=== PATIENT | female | born 1960 | race Caucasian/White ===

== ENCOUNTER 2019-12-01 19:21 | Emergency (ER) | payer OTHER, SELFPAY ==
[2019-11-25 10:01] VITALS: BMI 23.1
[2019-12-01 19:22] VITALS: BP 164/86; PULSE 79; RESP 18; TEMP 36.8; O2SAT 97; BMI 23.1
[2019-12-01 19:59] VITALS: O2SAT 100
--- NOTE | 2019-12-01 20:01 | EKG12_ITS ---
Test Reason : SOB Blood Pressure : / mmHG Vent. Rate : 061 BPM Atrial Rate : 061 BPM P-R Int : 156 ms QRS Dur : 076 ms QT Int : 440 ms P-R-T Axes : 065 051 052 degrees QTc Int : 442 ms Normal sinus rhythm Septal infarct , age undetermined Abnormal ECG Confirmed by JERRY BEARDEN, ESTEVAN ([id number]), international editorial producer KAITLYNN MCCURDY ([id number]) on 12/04/2019 10:09:57 AM Referred By: FABIO Confirmed By:ESTEVAN EDWARDS MD
--- NOTE | 2019-12-01 20:02 | ED.DCSUM_ITS ---
History of Present Illness Chief Complaint: Shortness of Breath Informant: Patient Onset: Weeks Context: Gradual Onset Timing: Waxes and wanes Current Severity: Mild Maximum Severity: Moderate Narrative: Patient presents with shortness of breath that is been ongoing for the past 4 or 5 weeks. She states she has a burning sensation in the midportion of her chest consistent with reflux. She started taking Harriet as well as Prilosec. She has not noted improvement in her symptoms in spite of this treatment. She states when the burning comes up into the upper chest sometimes it will radiate to her left jaw. She has not noted significant chest pain. She has not noted wheezing or cough. - Past Medical History (1) Hypertension Status: Chronic (2) Stomach ulcer Status: Resolved Past Medical History - Allergies and Home Meds Allergies/Adverse Reactions: Allergies Penicillins Allergy (Verified 12/01/19 19:25) Rash Primary Care Physician: NOT,DEFINED [NON-STAFF] - Prior records reviewed: Yes Smoking Status: Never smoker Review of Systems General: Denies: Chills, Fever Eyes: Denies: Visual changes - bilaterally ENT: Denies: Bilateral ear pain Cardiovascular: Denies: Chest pain Respiratory: Reports: Dyspnea. Denies: Cough, Sputum Gastrointestinal: Reports: - - Reflux symptoms. Denies: Abdominal pain, Nausea, Vomiting, Diarrhea Genitourinary: Denies: Dysuria Musculoskeletal: Denies: Swelling, Extremity Pain Skin: Denies: Rash Neurological: Denies: Headache Hematologic: Denies: Easy bruising, Easy bleeding Physical Exam Vital Signs/Narrative: Vital Signs Temp Pulse Resp BP Pulse Ox 12/01/19 19:22 98.2 F 79 18 164/86 H 97 Inital Vital Signs reviewed: Yes General: Well nourished, Well developed Head: Normocephalic ENT: Moist mucous membranes Neck: Supple Cardiovascular: Regular rate, Regular rhythm Respiratory: No distress, CTA bilaterally Abdomen: Soft, Nontender, Nondistended Back: Nontender Extremities: Nontender Skin: Normal color, No rash Neurological: Alert, Oriented x3 Psychological: Normal affect Diagnostic/Tx/Re-eval Impressions Chest X-Ray 12/01/19 20:45 IMPRESSION: Normal x-ray examination of the chest. Electronically Signed: Lorenzo Deng MD at 20:55 EDT , Service support , 12/01/19 20:45 Chest 1 View (Portable) [RAD] Stat Laboratory Results 12/01/19 12/01/19 20:15 20:15 WBC 6.7 RBC 4.16 L Hgb 12.2 Hct 37.2 MCV 89.4 MCH 29.3 MCHC 32.8 RDW Std Deviation 41.0 RDW Coeff of Gm 12.6 Plt Count 311 MPV 9.5 Immature Gran % (Auto) 0.100 Neut % (Auto) 48.6 Lymph % (Auto) 40.6 Kimble % (Auto) 6.1 Eos % (Auto) 3.4 Baso % (Auto) 1.2 H Absolute Neuts (auto) 3.3 Absolute Lymphs (auto) 2.72 Nucleated RBC % 0 Sodium 139 Potassium 2.9 L Chloride 105 Carbon Dioxide 27.0 Anion Gap 7 BUN 18 Creatinine 0.99 Estim Creat Clear Calc 49.36 Est GFR (MDRD) Af Amer 73 Est GFR (MDRD) Non-Af 61 BUN/Creatinine Ratio 18.2 Glucose 90 Calcium 9.3 Troponin I < 0.015 - EKG Initial EKG Interpretation: Sinus Rhythm - Sinus at 61 with no acute ischemia. - Medical Decision Making Patient was given a GI cocktail. On repeat evaluation she does note some improvement. Patient's potassium is slightly low at 2.9. She is given 40 mEq p.o. will be given replacement for for next. She will also be written for Prilosec 40 mg. She is referred to Dr. Elizabeth for follow-up, next in the no doc list. ED Disposition - Plan for ED Patient: Disposition: Home or Assisted Living Diagnosis: GERD (gastroesophageal reflux disease), Hypokalemia Instructions: Gastroesophageal Reflux Disease (GERD), ED Potassium Deficiency Prescriptions: Potassium Chloride [K-Dur] 20 meq PO BID #8 tab Transmission Status: Pending to [facility] Omeprazole [Prilosec] 40 mg PO DAILY #60 cap Transmission Status: Pending to [facility] Referrals: Robert Bermudez MD [NON-STAFF] - As soon as possible
--- NOTE | 2019-12-01 20:06 | ED.RN ---
NO OLD EKGS AT THIS TIME
[2019-12-01] MEDS: Mag Hydrox/Al Hydrox/Simeth 30 ML UDC PO (20:17)
[2019-12-01 20:27] LABS: Absolute Lymphocyte Count 2.72 X10^3/uL (0.83-4.51); Absolute Neutrophil Count 3.3 X10^3/uL (2.0-7.7); Basophil# 0.08 X10^3/uL; Basophil% 1.2 % (0-1); Eosinophil# 0.23 X10^3/uL; Eosinophils% 3.4 % (0-5); Hematocrit 37.2 % (37-47); Hemoglobin 12.2 g/dL (12.0-15.0); Lymphocyte # 2.72 X10^3/ul (4.0); Lymphocyte % 40.6 % (19-41); Mean Corp Hgb Conc 32.8 g/dL (32-36); Mean Corpuscular Hgb 29.3 pg (27.0-32.0); Mean Corpuscular Volume 89.4 fL (81-99); Mean Platelet Vol. 9.5 fl (6.2-12.0); Monocyte# 0.41 X10^3/uL; Monocyte% 6.1 % (0-10); NRBC Flagged by Analyzer 0 % (0-5); Neutrophil # 3.25 X10^3/uL (2.7-7.7); Neutrophil % 48.6 % (47-70); Platelet Count 311 K/mm3 (150-450); RBC Distribution Width CV 12.6 % (11.6-14.6); Red Blood Count 4.16 M/mm3 (4.2-5.4); White Blood Count 6.7 K/mm3 (4.4-11.0)
--- NOTE | 2019-12-01 20:45 | RAD_ITS ---
STUDY: X-RAY CHEST REASON FOR EXAM: Female, 59 years old. shortness of breath TECHNIQUE: AP portable COMPARISON: None. FINDINGS: The lungs are clear and expanded.. There is no demonstrated pleural abnormality. Normal size heart. Normal mediastinum and piter. Normal visualized pulmonary arteries. Normal visualized aortic arch and descending thoracic aorta. Normal visualized thoracic spine. Normal visualized ribs, clavicles, and shoulders. There is no demonstrated abnormality of the visualized soft tissue structures of the upper abdomen. RAD/Chest 1 View (Portable) IMPRESSION: Normal x-ray examination of the chest. Electronically Signed: Lorenzo Deng MD at 20:55 EDT , Service support ,
[2019-12-01 20:51] LABS: Anion Gap 7 (5-15); BUN 18 mg/dL (7-18); BUN/Creat Ratio 18.2 RATIO (10-20); Calcium,Total 9.3 mg/dL (8.5-10.1); Chloride 105 mmol/L (98-107); Creatinine, Serum 0.99 mg/dL (0.55-1.02); EST Glomerular Filtration Rate 61 mL/min (>60); Est Glom Filt Rate - Afr Amer 73 mL/min (>60); Estimated Creatinine Clearance 49.36 ml/min; Glucose 90 mg/dL (74-106); Potassium 2.9 mmol/L (3.5-5.1); Sodium Level 139 mmol/L (136-145)
[2019-12-01 21:00] VITALS: BP 134/86; PULSE 68; RESP 22; O2SAT 98
[2019-12-01 21:40] VITALS: BP 144/90; PULSE 58; RESP 11; O2SAT 100
== END 2019-12-01 21:53 | disposition home or self-care (01) ==
PROVIDERS: Emergency Provider Emergency Medicine
DX: K21.9 Gastro-esophageal reflux disease without esophagitis (principal); E87.6 Hypokalemia; I10 Essential (primary) hypertension; Z79.899 Other long term (current) drug therapy
CPT/HCPCS: 71045; 80048; 84484; 85025; 93005; 99284; A4216

== ENCOUNTER → 2019-12-18 | Outpatient (CLI) | payer OTHER, SELFPAY ==
[2019-12-15 09:28] VITALS: BMI 21.7
[2019-12-18 15:31] LABS: ALB/GLOB Ratio 1.5 RATIO (0.9-2.4); AST(SGOT) 25 U/L (15-37); Alanine Aminotransfer ALT/SGPT 26 U/L (13-56); Albumin, Serum 4.1 g/dL (3.2-5.0); Alkaline Phosphatase 54 U/L (45-117); Anion Gap 10 (5-15); BUN 8 mg/dL (7-18); BUN/Creat Ratio 9.8 RATIO (10-20); Calcium,Total 8.8 mg/dL (8.5-10.1); Chloride 91 mmol/L (98-107); Cholesterol 219 mg/dL (200); Creatinine, Serum 0.82 mg/dL (0.55-1.02); EST Glomerular Filtration Rate 75 mL/min (>60); Est Glom Filt Rate - Afr Amer 91 mL/min (>60); Globulin 2.8 g/dL (2.2-4.2); Glucose 125 mg/dL (74-106); High Density Lipoprotein 73 mg/dL; Potassium 3.4 mmol/L (3.5-5.1); Protein, Total 6.9 g/dL (6.4-8.2); Sodium Level 128 mmol/L (136-145); Triglycerides 102 mg/dL; Very Low Density Lipoprotein 20 mg/dL (5-40)
== END | disposition home or self-care (01) ==
PROVIDERS: PCP Internal Medicine; Referring Provider Internal Medicine; Visit Provider Internal Medicine
DX: I10 Essential (primary) hypertension (principal); K21.9 Gastro-esophageal reflux disease without esophagitis
CPT/HCPCS: 80053; 80061

== ENCOUNTER → 2019-12-28 12:42 | Outpatient (CLI) | payer OTHER, SELFPAY ==
[2019-12-25 09:45] VITALS: BMI 21.0
--- NOTE | 2019-12-28 13:48 | SP.MBSS_ITS ---
Primary/Secondary Diagnosis: dysphagia, unspecified (R13.12) Referring Physician: Dr. Zhen Walsh Medical History: Patient is a 59/F with past medical history of HTN, stomach ulcer, and GERD. Patient has reported globus sensation in throat making swallowing difficult and uncomfortable. In addition patient has reported shortness of breath with eating. Reason for Referral: difficulty swallowing; globus sensation Current Diet: Regular Textures/Thin Liquids Dentition: Natural Teeth Mental Status: WFL Respiratory Status: oxygenating on room air Previous Modified Barium Swallow: N/A Study Findings: This patient was seen for a Modified Barium Swallow on 12/28/2019. This study was recorded in the lateral view and images were sent to PACs for storage. The following consistencies were presented to this patient for analysis of oropharyngeal swallow function: thin liquid, nectar thick liquid, pudding, and a cookie. Oral Phase Labial seal: no labial escape Tongue control during bolus hold: cohesive bolus between tongue to palatal seal Bolus preparation/mastication: slow prolonged chewing/mashing with complete recollection Bolus transport/lingual motion: brisk tongue motion Oral residue: trace residue lining oral structures Pharyngeal Phase Initiation of pharyngeal swallow: bolus head in valleculae Soft palate elevation: no bolus between soft palate and pharyngeal wall Laryngeal elevation: complete superior movement of thyroid cartilage with complete approximation of arytenoids cartilage to epiglottic petiole Anterior hyoid excursion: partial anterior movement Epiglottic movement: complete inversion Laryngeal vestibule closure at height of swallow: incomplete; narrow column of air/contrast in laryngeal vestibule Pharyngeal stripping wave: present complete Pharyngoesophageal segment opening: partial distension and partial duration; partial obstruction of flow Tongue base retraction: trace column of contrast between tongue base and posterior pharyngeal wall Pharyngeal residue: trace residue within or on pharyngeal structures Esophageal Phase Could not view* Penetration-Aspiration Scale 1 = does not enter airway 2 = enters airway/above vocal folds/ejected 3 = enters airway/above vocal folds/not ejected 4 = enters airway/contacts vocal folds/ejected 5 = enters airway/contacts vocal folds/not ejected 6 = enters airway/below vocal folds/ejected 7 = enters airway/below vocal folds/not ejected despite effort 8 = enters airway/below vocal folds/no effort Penetration-Aspiration Scale Score: 1) Thin liquids via teaspoon: 1 2) Thin Liquids via teaspoon: 1 3) Thin liquids via single small sip from cup : 1 4) Thin liquids via single large sip from cup: 1 5) Thin liquids via sequential sips from cup: 2 6) Reedy thick liquids: 1 7) puddin 8) cookie: 1 9) Thin liquids via sequential sips from cup 2 Diagnosis: mild oropharyngeal dysphagia (R13.12) Impression: The patient demonstrated slight penetration of thin liquids when consumed via straw and with larger sip. On both occurances penetration of liquid was above the vocal cords and ejected. No aspiration found on this assessment. Patient demosntrated adequate mastication of solid Juany Doone cookie with only trace residue on oral and pharyngeal structures. Would recommend follow up with GI as highly suspect acid reflex may be at least partially the cause of globus sensation patient describes. Recommendations Diet: Regular Textures/Thin Liquids Compensatory Strategies Recommended: small bites/sips, upright 90 degrees during meals/drinks and remain upright 30-60 minutes after, alternate bites/sips Need for Skilled Speech Therapy Services: No further skilled ST services warranted at this time. ADDITIONAL COMMENTS/RECOMMENDATIONS: Patient instructed on evaluation results. Patientt able to repeat recommendations back to BUILD ENGINEER demonstrating adequate knowledge and understanding with high likelihood of compliance. Image Count [id number] Vani Zeng MA, CCC-BUILD ENGINEER [place] [id number] [place], [place] [address] [email or web address]
== END ==
PROVIDERS: PCP Internal Medicine; Referring Provider Internal Medicine Critical Care Medicine; Visit Provider Internal Medicine Critical Care Medicine
DX: R13.10 Dysphagia, unspecified (principal); R06.00 Dyspnea, unspecified
CPT/HCPCS: 74230; 92611

== ENCOUNTER → 2020-01-02 06:53 | Outpatient (CLI) | payer OTHER, SELFPAY ==
[2019-12-25 09:45] VITALS: BMI 21.0
--- NOTE | 2020-01-02 13:50 | PFTCOMP ---
COMPLETE PULMONARY FUNCTION TEST INTERPRETATION Brief HPI: Patient is a 59 year old female, currently under the care of myself, who presents to [facility] for complete pulmonary function tests secondary to diagnosis of dyspnea. Respiratory therapist reports good effort and reproducible results. Interpretation: Forced expiration spirometry shows a mild large airways obstructive ventilatory defect with an FEV1 of 103% predicted. There is no significant bronchodilator response by strict ATS criteria. Spirograms are of good quality and plateau slowly, indicating slowly emptying areas of the lungs. The respiratory flow volume loop shows decreased expiratory flow rates at all lung volumes consistent with airway obstruction. Lung volumes by body plethysmography show an elevated total lung capacity at 6.04 L, 129% predicted. All other lung volumes are creased symmetrically. Diffusion capacity by carbon monoxide is normal at 101% predicted. The airway resistance is normal. No previous pulmonary function tests were available for review. Impression: Irreversible mild large airways obstructive ventilatory defect resulting in hyperinflation with preserved diffusion capacity.
== END ==
PROVIDERS: PCP Internal Medicine; Referring Provider Internal Medicine Critical Care Medicine; Visit Provider Internal Medicine Critical Care Medicine
DX: R06.00 Dyspnea, unspecified (principal)
CPT/HCPCS: 94060; 94726; 94729

== ENCOUNTER → 2020-01-03 | Outpatient (CLI) | payer OTHER, SELFPAY ==
[2020-01-03 08:23] VITALS: BMI 21.0
--- NOTE | 2020-01-03 09:45 | CT_ITS ---
STUDY: CT CHEST WITHOUT CONTRAST REASON FOR EXAM: Female, 59 years old. CHEST DISCOMFORT, RESTRICTIVE LUNG DISEASE RADIATION DOSAGE (If Supplied By Facility): CTDIvol = ( 6.21 ) mGy, DLP = ( 212.39 ) mGycm TECHNIQUE: Transaxial imaging was performed without the administration of intravenous contrast material. Multiplanar coronal and sagittal images were reformatted. Individualized dose optimization techniques were used for this CT. COMPARISON: Comparison is made with prior chest radiograph dated December 01, 2019. FINDINGS: Minimal degree of bilateral apical scarring. There is no demonstrated pleural abnormality. There are calcifications of the coronary arteries. Normal mediastinum. Normal hilar regions. Normal unenhanced pulmonary arteries. There is atherosclerotic calcification of the aortic arch and descending thoracic aorta. There are mild degenerative changes of the thoracic spine. There is no demonstrated abnormality of the visualized upper abdomen. CT/Chest without Contrast IMPRESSION: No acute abnormality is seen. Electronically Signed: Cuong Castle, at 10:17 EDT , Service support ,
== END | disposition home or self-care (01) ==
LOC: CT 09:45
PROVIDERS: PCP Internal Medicine; Visit Provider Nurse Practitioner Acute Care
DX: J98.4 Other disorders of lung (principal)
CPT/HCPCS: 71250

== ENCOUNTER → 2020-01-17 | Outpatient (CLI) | payer OTHER, SELFPAY ==
[2020-01-10 09:41] VITALS: BMI 21.0
[2020-01-17 12:55] LABS: Anion Gap 5 (5-15); BUN 9 mg/dL (7-18); BUN/Creat Ratio 12.2 RATIO (10-20); Calcium,Total 8.7 mg/dL (8.5-10.1); Chloride 104 mmol/L (98-107); Creatinine, Serum 0.74 mg/dL (0.55-1.02); EST Glomerular Filtration Rate 85 mL/min (>60); Est Glom Filt Rate - Afr Amer 103 mL/min (>60); Glucose 75 mg/dL (74-106); Potassium 4.2 mmol/L (3.5-5.1); Sodium Level 137 mmol/L (136-145)
== END | disposition home or self-care (01) ==
LOC: BIMLAB 09:39
PROVIDERS: PCP Internal Medicine; Referring Provider Nurse Practitioner Family; Visit Provider Nurse Practitioner Family
DX: E87.6 Hypokalemia (principal)
CPT/HCPCS: 36415; 80048

== ENCOUNTER → 2020-01-25 | Outpatient (CLI) | payer OTHER, SELFPAY ==
[2020-01-10 09:41] VITALS: BMI 21.0
--- NOTE | 2020-01-25 12:56 | BD_ITS ---
STUDY: DUAL ENERGY X-RAY ABSORPTIOMETRY / DXA REASON FOR EXAM: Female, 60 years old. 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 COMPARISON: None. FINDINGS: Lumbar Spine (L1-L4): g/cm2 (1.401) / T-score (1.8) / Z-score (3.2) Findings are suggestive of normal bone density with a low fracture risk. Left Femur Total: g/cm2 (1.008) / T-score (0.0) / Z-score (1.0) Left Femoral Neck: g/cm2 (1.005) / T-score (-0.2) / Z-score (1.1) Right Femur Total: g/cm2 (1.090) / T-score (0.7) / Z-score (1.7) Right Femoral Neck: g/cm2 (1.077) / T-score (0.3) / Z-score (1.6) BD/Dexa Bone Density Study IMPRESSION: The patient is considered normal as outlined below according to World Ari[employer] Organization (WHO) criteria with a low fracture risk. Reference Information: The T-score is the number of standard deviations above or below the standard which is normal for young adults at their peak bone mineral density. The World Health Organization (WHO) interprets the T-scores as follows: Above -1 Normal bone density Between -1 and -2.5 Osteopenia Equal to / or below -2.5 Osteoporosis As a practical clinical guideline, osteopenia may be graded as follows: Mild -1 through -1.5 Moderate -1.6 through -2.0 Severe -2.1 through -2.4 The Z-score is the number of standard deviations above or below age-matched controls. A Z-score of less than -1.5 would be considered abnormal. References: 1. NIH Osteoporosis and Related Bone Diseases http://www.osteo.org 2. International Society for Clinical Densitometry http://www.iscd.org 3. National Osteoporosis Foundation http://www.nof.org Electronically Signed: Cuong Castle, at 14:53 EDT , Service support ,
== END | disposition home or self-care (01) ==
LOC: OPBD 12:53
PROVIDERS: PCP Internal Medicine; Referring Provider Nurse Practitioner Family; Visit Provider Nurse Practitioner Family
DX: Z78.0 Asymptomatic menopausal state (principal)
CPT/HCPCS: 77080

== ENCOUNTER 2020-02-13 08:31 | Day surgery (SDC) | payer OTHER, SELFPAY ==
[2020-01-31 13:26] VITALS: BMI 21.0
[2020-02-13] VITALS (7 sets, daily range): BP systolic 102–118; BP diastolic 58–79; PULSE 64–67; RESP 16; TEMP 36.7–37.1; O2SAT 97–100; BMI 19.9
--- NOTE | 2020-02-13 08:56 | PCM.HP.BLA ---
Problem List (1) Dysphagia Status: Chronic Qualifiers: Dysphagia type: esophageal phase Qualified Code(s): R13.10 - Dysphagia, unspecified (2) GERD (gastroesophageal reflux disease) Status: Chronic Qualifiers: History and Physical Date of Admission: 02/13/20 Intake Vital Signs 01/31/20 BMI 21.0 01/31/20 Height 5 ft 3 in 01/31/20 Weight: 117 lb 8 oz 01/31/20 BMI 20.8 01/31/20 BP 122/72 H 01/31/20 Blood Pressure Location Rt brachial 01/31/20 Position Sitting 01/31/20 Respiration 16 01/31/20 Pulse 62 01/31/20 Temp 97.4 F L 01/31/20 Temp Source Temporal 01/31/20 Pulse Oximetry (%) 99 Intake Visit Reasons: 3WK F/U MEDS DYSPHAGIA Chief Complaint: Follow-up GI symptoms Case Work Aide Required: No Is patient in pain?: No Allergies Penicillins Allergy (Verified 01/31/20 13:26) Rash Medications famotidine 20 mg tablet 20 mg PO BID #60 tab 12/15/19 [Rx Confirmed 01/31/20] albuterol sulfate 90 mcg/actuation aerosol inhaler 2 puff INHALATION Q6H PRN #8.5 g 12/19/19 [Rx Confirmed 01/31/20] losartan 50 mg tablet 75 mg PO DAILY tab 12/19/19 [History Confirmed 01/31/20] BMX 5 ml PO Q6H #120 ml 12/29/19 [Rx Confirmed 01/31/20] omeprazole 20 mg tablet,delayed release 20 mg PO DAILY #60 tab 01/03/20 [Rx Confirmed 01/31/20] sucralfate 1 gram tablet 1 g PO QACHS #120 tab 01/03/20 [Rx Confirmed 01/31/20] Is last menstrual period known: No Post menopausal: Yes Patient : No PFSH Medical History GERD (gastroesophageal reflux disease) (Chronic) IBS (irritable bowel syndrome) (Chronic) Carpal tunnel syndrome (Acute) Allergies (Chronic) Diarrhea (Acute) Severe headache (Acute) Stomach ulcer (Acute) Hemorrhoids (Chronic) HTN (hypertension) (Chronic) Surgical History History of carpal tunnel release of both wrists (Acute) History of surgery on right wrist (Acute) Family History Father Heart disease Asthma Bowel disease Sister Asthma Diabetes Hypertension Social History (Updated 01/31/20 @ 13:[address] Serge Duarte MD) Smoking Status: Never smoker alcohol intake: never substance use type: does not use what type of physical activity do you participate in: walking frequency: daily HPI HPI HPI: MARCELA MCCLURE, is a 60 F who presents to the office today for HPI HPI HPI: MARCELA MCCLURE, is a 60 F who presents to the office today for follow-up after dysphasia and being started on a PPI and Carafate. Patient reports that her burning is gone in her chest but she is still having shortness of breath when she eats and she is also having pressure in the middle of her chest. She is having no nausea or vomiting. ROS General General: Yes weight change; no appetite, fatigue, colon cancer, breast cancer or weakness HEENT HEENT: No difficulty swallowing, eye injury, eye surgery, swollen glands or hoarseness Endo Endocrine: No thyroid disease, diabetes mellitus, thyroid cancer, Hair loss, heat intolerance or cold intolerance Cardio Cardiovascular: Yes high blood pressure; no murmur, pacemaker, heart disease, atrial fibrillation, heart attack, heart stent, palpitations, shortness of breat with exertion or chest pain Psych Psychiatric: Yes anxiety; no depression or hearing voices Resp Respiratory: Yes shortness of breath, No sleep apnea, No cough, No COPD, No asthma, No emphysema, No wheezing Gastro Gastrointestinal: No abdominal pain, No nausea or vomiting, No diarrhea, No constipation, No blood in stool, Yes acid reflux, Yes hemorrhoids, No ulcers, No gallbladder problem, No black,tarry stools Hollis Hematologic: No blood thinners, No blood disorders, No bleeding, No anemia, No blood clots Neuro Neurologic: No weakness Exam Const General: cooperative Orientation: alert, oriented x3 Resp Effort & Inspection: normal respiratory effort Auscultation: clear to auscultation bilaterally Cardio Rate: regular rate Rhythm: regular rhythm Heart Sounds: no murmurs GI Inspection: non-distended Palpation: soft, nontender Assessment & Plan Problems 1. Gastroesophageal reflux disease, esophagitis presence not specified K21.9 2. Oropharyngeal dysphagia R13.12 Plan The patient is still having some dysphasia and shortness of breath and pain in the middle of her chest with swallowing. She does state that her reflux has responded to the PPI. I have offered her an EGD with biopsies of the esophagus to rule out Eosinophilic esophagitis and to check for H. pylori. I explained endoscopy in detail to the patient. I explained the risks including but not limited to stroke or heart attack with anesthesia, perforation of the GI tract, bleeding, infection. I explained that any of these could necessitate further emergency surgery. The patient understands and all questions were answered sufficiently. The patient wishes to proceed with procedure. We discussed the current risks associated with COVID-19. While it is understood that there is a community spread of COVID-19, the risk of rosio COVID-19 while at [facility] ([facility]) is very low; however, the risk cannot be completely mitigated because of the community spread of the disease. We discussed in detail the risk of exposure to and/or potential harm posed by the COVID-19 virus with having a surgery/procedure at this time versus the risk of delaying the surgery/procedure. It is not possible to know either the risk of delaying the surgery or procedure or chance of getting an infection with perfect accuracy, but a joint decision was made to proceed at this time with the scheduled surgery/procedure as indicated on the consent form. Patient was notified that we will need to comply with any screening or testing [facility] wishes to perform or that surgery may be delayed for any positive results. Serge Duarte MD Pager: [facility] [address] [place] [address], [address] [place] [address] Office: Orders Orders: EGD Today K21.9, R13.10 Coding Level of Care Code Off vis,est,level 3 Diagnoses Gastroesophageal reflux disease, esophagitis presence not specified K21.9 ??Esophagitis presence: esophagitis presence not specified Oropharyngeal dysphagia R13.12 ??Dysphagia type: oropharyngeal phase 01/31/20 1334 <Electronically signed by Serge Duarte MD> Date Serge Duarte MD I have re-examined the patient. There are no clinical changes since date of exam.
[2020-02-13] MEDS: Lactated Ringers 1,000 ML 100 ML IV (08:59)
--- NOTE | 2020-02-13 09:30 | EGD_PTH ---
PATIENT: MARCELA MCCLURE LOC: EN U#:[id number] AGE/SX: 60/F ROOM: RE02/13/[address]: Dr. Serge Duarte MD : 1960 BED: DIS: 02/13/2020 SPEC #: [id number] RECD: 02/13/20 13:48 STATUS: ANITA LORNA #: [id number] ERIC: 02/13/20 09:[address]: Serge Duarte DEPT: SURGICAL PATHOLOGY RECD BY: Александр Perez ENTERED: 02/14/20 09:18 SP TYPE: EGD BIOPSY OT DR: Dr. Josette Zeng MD Tissues: A - Gastric mucous membrane B - Esophageal mucous membrane Procedures: Surgery Specimen Level IV HEADER OPERATION: EGD [place] PRE-OP DIAGNOSIS: Chronic dysphasia, GERD TISSUE SUBMITTED: A - Antrum biopsy for histo and H. pylori, B - Mid esophagus biopsy for eosinophils MICROSCOPIC DIAGNOSIS A. Antrum biopsy: Mild gastritis. See microscopic description and comment. B. Mid esophagus, biopsy: Fragments of squamous epithelium, no pathologic diagnosis. See comment. SJ:rg 02/15/20 COMMENT A. The results of immunohistochemistry for Helicobacter pylori will be reported separately ([id number]). B. Increased number of eosinophils consistent with eosinophilic esophagitis are not seen. MICROSCOPIC DESCRIPTION Slides are reviewed. A. The specimen shows fragments of gastric mucosa with chronic inflammatory cell infiltrates in the lamina propria consisting of lymphocytes and plasma cells, consistent with mild chronic gastritis. GROSS DESCRIPTION A - Received in fixative is one container labeled with the patient's name and designated antrum biopsy. The specimen consists of two irregular fragments of light rodriguez soft tissue that in aggregate measure 0.6 x 0.2 x 0.1 cm. The specimen is totally submitted in one cassette. B - Received in fixative is one container labeled with the patient's name and designated mid esophagus biopsy. The specimen consists of multiple irregular fragments of light rodriguez soft tissue that in aggregate measure 1.5 x 0.5 x 0.1 cm. The specimen is totally submitted in one cassette. / JULIO CÉSAR:alexander 02/14/20 TC:3 CPT: 34099
--- NOTE | 2020-02-13 09:30 | IMM_PTH ---
PATIENT: MARCELA MCCLURE LOC: EN U#:[id number] AGE/SX: 60/F ROOM: RE02/13/[address]: Dr. Serge Duarte MD : 1960 BED: DIS: 02/13/2020 SPEC #: [id number] RECD: 02/14/20 12:09 STATUS: ANITA LORNA #: [id number] ERIC: 02/13/20 09:[address]: Serge Duarte DEPT: IMMUNOHISTOCHEMISTRY RECD BY: Blaire Tamez ENTERED: 02/14/20 12:09 SP TYPE: IMMUNO OTHR DR: Dr. Josette Zeng MD Tissues: A - Stomach, NOS Procedures: H Pylori (initial) PHYSICIAN & INSTITUTION [place] [address] SPECIMEN INFORMATION: Tissue Source: A - Antrum biopsy Clinical Info: Chronic dysphasia, GERD Specimen Number: [id number] CPT code: 94177 METHODOLOGY: Deparaffinized sections of prefer/formalin-fixed tissue or PAP/DQ stained slides are incubated with monoclonal/polyclonal antibodies/oligonucleotide probes. Localization is made via biotin free immunoperoxidase method. Appropriate controls are performed and reacted as expected. Results on target cell population are indicated in the following table: RESULTS: ANTIBODY / CLONE RESULT Block A H Pylori (polyclonal) negative These tests were developed and their performance characteristics determined by [facility]. They may not have been cleared or approved by the U.S. Food and Drug Administration. The FDA has determined that such clearance or approval is not necessary. INTERPRETATION: A. Antrum biopsy: Negative for Helicobacter pylori organisms. SJ:alexander 02/15/20
--- NOTE | 2020-02-13 10:00 | OP.EGD_ITS ---
Patient Name: Princess Monte Procedure Date: 02/13/2020 9:40 AM Date of : 1960 Age: 60 Procedure: Upper GI endoscopy Indications: Dysphagia, Suspected gastro-esophageal reflux disease Providers: Serge Duarte MD Referring MD: Josette Zeng MD Medicines: Monitored Anesthesia Care Patient Profile: This is a 60 year old female. Refer to note in patient chart for documentation of history and physical. Complications: No immediate complications. Estimated blood loss: Minimal. Procedure: Pre-Anesthesia Assessment: - Prior to the procedure, a History and Physical was performed, and patient medications and allergies were reviewed. The patient's tolerance of previous anesthesia was also reviewed. The risks and benefits of the procedure and the sedation options and risks were discussed with the patient. All questions were answered, and informed consent was obtained. Prior Anticoagulants: The patient has taken no previous anticoagulant or antiplatelet agents. After reviewing the risks and benefits, the patient was deemed in satisfactory condition to undergo the procedure. After obtaining informed consent, the endoscope was passed under direct vision. Throughout the procedure, the patient's blood pressure, pulse, and oxygen saturations were monitored continuously. The Endoscope was introduced through the mouth, and advanced to the second part of duodenum. The upper GI endoscopy was accomplished without difficulty. The patient tolerated the procedure well. Scope In: 9:48:50 AM Scope Out: 9:53:40 AM Total Procedure Duration Time 0 hours 4 minutes 50 seconds Findings: The esophagus was normal. The stomach was normal. The examined duodenum was normal. Biopsies were taken with a cold forceps in the gastric antrum for Helicobacter pylori testing. Biopsies were taken with a cold forceps in the mid esophagus for histology. Impression: - Normal esophagus. - Normal stomach. - Normal examined duodenum. - Biopsies were taken with a cold forceps for Helicobacter pylori testing. - Biopsies were taken with a cold forceps for histology in the mid esophagus. Recommendation: - Await pathology results. - Discharge patient to home. - Resume previous diet. - Continue present medications. - Await pathology results. - Perform ambulatory esophageal manometry at appointment to be scheduled. Procedure Code(s): --- Professional --- 17839, Esophagogastroduodenoscopy, flexible, transoral; with biopsy, single or multiple Diagnosis Code(s): --- Professional --- R13.10, Dysphagia, unspecified CPT copyright 2017 [employer]. All rights reserved. The codes documented in this report are preliminary and upon hims coder review may be revised to meet current compliance requirements. Serge Duarte MD 02/13/2020 10:00:18 AM This report has been signed electronically. Number of Addenda: 0 Note Initiated On: 02/13/2020 9:40 AM
--- NOTE | 2020-02-13 10:01 | OP.CCLET_ITS ---
02/13/2020 Josette Zeng MD [address] [place] [address] [place] [address] Re : Upper GI endoscopy procedure for Princess Monte Dear Dr. Zeng This procedure was performed on Thursday, February 13, 2020. My impressions and recommendations are as follows: Impressions : - Normal esophagus. - Normal stomach. - Normal examined duodenum. - Biopsies were taken with a cold forceps for Helicobacter pylori testing. - Biopsies were taken with a cold forceps for histology in the mid esophagus. Recommendations : - Await pathology results. - Discharge patient to home. - Resume previous diet. - Continue present medications. - Await pathology results. - Perform ambulatory esophageal manometry at appointment to be scheduled. My findings are described in the full procedure note, which is enclosed. If I can be of further assistance, please feel free to contact me at Doctor phone number(s): , Work: . Sincerely, Serge Duarte MD 02/13/2020 10:00:18 AM This report has been signed electronically.
== END 2020-02-13 10:30 | disposition home or self-care (01) ==
LOC: EN 08:32 → AC 08:33
PROVIDERS: Anesthesiology; PCP Internal Medicine; Referring Provider Internal Medicine; Visit Provider Surgery
PROC: 0DJ08ZZ Inspection of Upper Intestinal Tract, Via Natural or Artificial Opening Endoscopic (ICD-10-PCS; CPT 43235; principal; 2020-02-13 09:25)
DX: K21.9 Gastro-esophageal reflux disease without esophagitis (principal); I10 Essential (primary) hypertension; Z11.59 Encounter for screening for other viral diseases; Z79.899 Other long term (current) drug therapy
CPT/HCPCS: 43239; 87635; 88305; 88342; G2023; J7120; J2405; U0003

== ENCOUNTER 2020-02-29 07:51 | Day surgery (SDC) | payer OTHER, SELFPAY ==
[2020-02-13 08:53] VITALS: BMI 19.9
[2020-02-29 08:13] VITALS: BP 129/83; PULSE 69; RESP 16; O2SAT 100
== END 2020-02-29 08:40 | disposition home or self-care (01) ==
LOC: EN 07:53
PROVIDERS: PCP Internal Medicine; Referring Provider Internal Medicine; Visit Provider Surgery
PROC: F00ZJWZ Instrumental Swallowing and Oral Function Assessment using Swallowing Equipment (ICD-10-PCS; CPT 43235; principal; 2020-02-29 07:55)
DX: R13.10 Dysphagia, unspecified (principal)
CPT/HCPCS: 91010; 87635; G2023; U0003

== ENCOUNTER → 2020-05-03 | Outpatient (CLI) | payer OTHER, SELFPAY ==
[2020-05-01 09:05] VITALS: BMI 19.9
[2020-05-03 12:40] LABS: Anion Gap 4 (5-15); BUN 15 mg/dL (7-18); BUN/Creat Ratio 20.1 RATIO (10-20); Chloride 104 mmol/L (98-107); Creatinine, Serum 0.74 mg/dL (0.55-1.02); EST Glomerular Filtration Rate 84 mL/min (>60); Est Glom Filt Rate - Afr Amer 101 mL/min (>60); Glucose 84 mg/dL (74-106); Potassium 4.2 mmol/L (3.5-5.1); Sodium Level 139 mmol/L (136-145)
== END | disposition home or self-care (01) ==
LOC: BIMLAB 10:14
PROVIDERS: PCP Internal Medicine; Referring Provider Internal Medicine; Visit Provider Internal Medicine
DX: R25.2 Cramp and spasm (principal)
CPT/HCPCS: 36415; 80048

== ENCOUNTER → 2020-09-25 10:46 | Outpatient (CLI) | payer OTHER, SELFPAY ==
[2020-05-01 09:05] VITALS: BMI 19.9
--- NOTE | 2020-09-25 10:50 | RAD_ITS ---
STUDY: X-RAY CHEST REASON FOR EXAM: Female, 60 years old. chest tightness, recent COVID TECHNIQUE: PA and lateral views of the chest. COMPARISON: Comparison is made with prior examination dated 12/01/2019. FINDINGS: Hyperinflation. Suspect early infiltrate in the posterior medial segment of the left lower lobe. There is no demonstrated pleural abnormality. Normal size heart. Normal mediastinum and piter. Normal visualized pulmonary arteries. There is atherosclerotic calcification of the aortic arch with tortuosity. Normal visualized thoracic spine. Normal visualized ribs, clavicles, and shoulders. There is no demonstrated abnormality of the visualized soft tissue structures of the upper abdomen. RAD/Chest PA and Lateral IMPRESSION: I suspect an early infiltrate in the posterior medial segment of the left lower lobe. Electronically Signed: Cuong Castle MD at 13:25 EST , Service support ,
== END ==
PROVIDERS: PCP Internal Medicine; Referring Provider Internal Medicine; Visit Provider Internal Medicine
DX: U07.1 COVID-19 (principal); R07.9 Chest pain, unspecified
CPT/HCPCS: 36415; 71046; 84484

== ENCOUNTER → 2020-09-26 12:56 | Outpatient (CLI) | payer OTHER, SELFPAY ==
[2020-05-01 09:05] VITALS: BMI 19.9
--- NOTE | 2020-09-26 12:58 | EKG12_ITS ---
Test Reason : FOLLOW UP Blood Pressure : / mmHG Vent. Rate : 070 BPM Atrial Rate : 070 BPM P-R Int : 124 ms QRS Dur : 068 ms QT Int : 376 ms P-R-T Axes : 061 067 059 degrees QTc Int : 406 ms Normal sinus rhythm Septal infarct , age undetermined Abnormal ECG Confirmed by JERRY BEARDEN, ESTEVAN ([id number]), state editor ULICES REYNA ([id number]) on 09/27/2020 8:14:36 AM Referred By: Josette Zeng Confirmed By:ESTEVAN EDWARDS MD
== END ==
PROVIDERS: PCP Internal Medicine; Referring Provider Internal Medicine; Visit Provider Internal Medicine
DX: R07.9 Chest pain, unspecified (principal)
CPT/HCPCS: 93005

== ENCOUNTER → 2021-02-17 08:08 | Outpatient (CLI) | payer OTHER, SELFPAY ==
[2020-05-01 09:05] VITALS: BMI 19.9
[2020-12-12 14:44] VITALS: BMI 23.2
--- NOTE | 2021-02-18 13:08 | PFTCOMP ---
INTRODUCTION: The patient is a 61-year-old female that presents for pulmonary function studies secondary to a diagnosis of abnormal PFT results. Respiratory therapy reports good patient effort. Bronchodilators were used during testing. INTERPRETATION: Forced expiration spirometry demonstrates no evidence of a large airways obstructive ventilatory defect. There was no significant response to aerosolized bronchodilators. Spirograms are of good quality and plateau normally. Body plethysmography was performed and revealed an elevated total lung capacity. Diffusing capacity by single breath CO was within normal limits. When compared to prior pulmonary function studies from December 2019 there has been a 19% improvement in diffusing capacity. IMPRESSION: Grossly normal PFTs with improvement in diffusing capacity as noted above.
== END ==
PROVIDERS: PCP Internal Medicine; Referring Provider Internal Medicine Critical Care Medicine; Visit Provider Internal Medicine Critical Care Medicine
DX: R94.2 Abnormal results of pulmonary function studies (principal)
CPT/HCPCS: 94060; 94726; 94729

== ENCOUNTER → 2021-03-24 09:11 | Outpatient (CLI) | payer OTHER, SELFPAY ==
[2021-03-24 08:49] VITALS: BMI 21.7
[2021-03-24 12:01] LABS: Absolute Lymphocyte Count 1.94 X10^3/uL (0.83-4.51); Absolute Neutrophil Count 3.4 X10^3/uL (2.0-7.7); Basophil# 0.08 X10^3/uL; Basophil% 1.4 % (0-1); Eosinophil# 0.12 X10^3/uL; Hematocrit 41.3 % (37-47); Hemoglobin 13.3 g/dL (12.0-15.0); Lymphocyte # 1.94 X10^3/ul (0.83-4.51); Lymphocyte % 32.8 % (19-41); Mean Corp Hgb Conc 32.2 g/dL (32-36); Mean Platelet Vol. 9.7 fl (6.2-12.0); Monocyte# 0.32 X10^3/uL; Monocyte% 5.4 % (0-10); NRBC Flagged by Analyzer 0 % (0-5); Neutrophil # 3.43 X10^3/uL (2.7-7.7); Neutrophil % 57.9 % (47-70); Platelet Count 379 K/mm3 (150-450); RBC Distribution Width CV 13.4 % (11.6-14.6); RBC Distribution Width SD 45.6 fl (35.1-43.9); Red Blood Count 4.44 M/mm3 (4.2-5.4); White Blood Count 5.9 K/mm3 (4.4-11.0)
[2021-03-24 12:16] LABS: ALB/GLOB Ratio 1.4 RATIO (0.9-2.4); AST(SGOT) 28 U/L (15-37); Alanine Aminotransfer ALT/SGPT 32 U/L (13-56); Albumin, Serum 4.2 g/dL (3.2-5.0); Alkaline Phosphatase 72 U/L (45-117); Anion Gap 6 (5-15); BUN 17 mg/dL (7-18); BUN/Creat Ratio 17.8 RATIO (10-20); Calcium,Total 9.1 mg/dL (8.5-10.1); Chloride 105 mmol/L (98-107); Cholesterol 211 mg/dL (200); Creatinine, Serum 0.96 mg/dL (0.55-1.02); EST Glomerular Filtration Rate 63 mL/min (>60); Est Glom Filt Rate - Afr Amer 76 mL/min (>60); Glucose 68 mg/dL (74-106); High Density Lipoprotein 85 mg/dL; Potassium 3.6 mmol/L (3.5-5.1); Protein, Total 7.2 g/dL (6.4-8.2); Sodium Level 139 mmol/L (136-145); Triglycerides 67 mg/dL; Very Low Density Lipoprotein 13 mg/dL (5-40)
== END ==
PROVIDERS: PCP Internal Medicine; Referring Provider Internal Medicine; Visit Provider Internal Medicine
DX: I10 Essential (primary) hypertension (principal)
CPT/HCPCS: 36415; 80053; 80061; 85025

== ENCOUNTER → 2021-04-04 12:55 | Outpatient (CLI) | payer OTHER, SELFPAY ==
--- NOTE | 2021-04-04 12:55 | BI_ITS ---
MAMMOGRAPHY - BILATERAL SCREENING REASON FOR EXAM: Female, 61 years old. Routine annual screening examination. PERTINENT HISTORY: Non-contributory. TECHNIQUE: Digital bilateral breast narda (3D mammographic acquisition) in the CC and MLO projections. 2-D mediolateral oblique (MLO) and craniocaudad (CC) views of both breasts were obtained. CAD: Full Field Digital Mammography with Computer Added Detection was performed. COMPARISON: Comparison is made with prior outside examination of 11/20/2009. FINDINGS: Breast Composition: There are scattered areas of fibroglandular density. There are no dominant masses or suspicious calcifications. No other significant abnormalities are identified. There has been no significant change since the prior study. BI/SCRN MAMM (CAD)W/NARDA BILAT IMPRESSION: Stable bilateral screening mammogram. Yearly follow-up mammogram recommended. (A) ASSESSMENT CATEGORY: BIRADS Category 1: Negative. A letter regarding these results will be sent to the patient by the facility within 30 days. Approximately 10% of breast cancers are not detected by mammography. A normal mammogram should not delay biopsy of a clinically suspicious abnormality. [id number] Electronically Signed: Cuong Castle MD at 13:52 EDT , Service support ,
== END ==
PROVIDERS: PCP Internal Medicine; Visit Provider Internal Medicine
DX: Z12.31 Encounter for screening mammogram for malignant neoplasm of breast (principal)
CPT/HCPCS: 77063; 77067

== ENCOUNTER → 2021-04-15 12:53 | Outpatient (CLI) | payer OTHER, SELFPAY ==
--- NOTE | 2021-04-15 12:54 | CDU_ITS ---
Reason For Study: bruit Rt. Velocities/BP Lt. Velocities/BP Prox CCA 83.9/21.3 cm/sec. Prox CCA 68.2/16.0 cm/sec. Mid CCA 74.7/22.6 cm/sec. Mid CCA 79.9/21.3 cm/sec. Dist CCA 66.9/18.6 cm/sec. Dist CCA 65.6/18.6 cm/sec. Prox ICA 64.3/22.6 cm/sec. Prox ICA 77.3/23.9 cm/sec. Mid ICA 77.3/23.9 cm/sec. Mid ICA 70.8/22.6 cm/sec. Dist ICA 74.7/22.6 cm/sec. Dist ICA 104.7/35.6 cm/sec. Rt. ICA/CCA = 1.0. Lt. ICA/CCA = 1.3. Prox ECA 56.5/9.5 cm/sec. Prox ECA 66.9/12.1 cm/sec. Rt. Vert. 51.3/18.6 cm/sec. Lt. Vert. 36.6/12.4 cm/sec. Right Extracranial There is intimal thickening but no significant atherosclerotic plaque noted in the right common carotid artery. There is intimal thickening but no significant atherosclerotic plaque noted in the right internal carotid artery. There is intimal thickening but no significant atherosclerotic plaque noted in the right external carotid artery. Antegrade flow is noted in the right vertebral artery. Left Extracranial There is intimal thickening but no significant atherosclerotic plaque noted in the left common carotid artery. There is intimal thickening but no significant atherosclerotic plaque noted in the left internal carotid artery. There is intimal thickening but no significant atherosclerotic plaque noted in the left external carotid artery. Antegrade flow is noted in the left vertebral artery. Procedure Carotid Duplex [id number]. This is a Carotid Duplex examination using B-mode, color flow and specral Doppler. The exam was diagnostic. Exam performed in department. VL/Carotid Duplex Ultrasound Interpretation Summary Intimal thickening but no hemodynamic significant plaque right extracranial car otid artery system with less than 50% stenosis the right internal carotid artery Less than 50% stenosis right external carotid artery Widely patent left extracranial carotid system with intimal thickening but no h emodynamic significant plaque. Less than 50% stenosis left internal carotid artery Less than 50% stenosis left external carotid artery Patent and antegrade vertebral arteries bilaterally Ordering Physician: Og Brunson Performed By: Max Sharma RVT
== END ==
PROVIDERS: PCP Internal Medicine; Referring Provider Surgery; Visit Provider Surgery
DX: R09.89 Other specified symptoms and signs involving the circulatory and respiratory systems (principal)
CPT/HCPCS: 93880

== ENCOUNTER 2021-06-02 08:56 | Day surgery (SDC) | payer OTHER, SELFPAY ==
--- NOTE | 2021-05-27 08:42 | EKG12_ITS ---
Test Reason : PREOP Blood Pressure : / mmHG Vent. Rate : 069 BPM Atrial Rate : 069 BPM P-R Int : 156 ms QRS Dur : 070 ms QT Int : 398 ms P-R-T Axes : 068 044 050 degrees QTc Int : 426 ms Normal sinus rhythm Confirmed by SHIMA BONILLA MD ([id number]), industrial editor POWER SANCHEZ ([id number]) on 05/27/2021 2:03:26 PM Referred By: Og Brunson Confirmed By:SHIMA BONILLA MD
[2021-05-27 09:25] LABS: Hematocrit 38.8 % (37-47); Hemoglobin 12.4 g/dL (12.0-15.0); Mean Corpuscular Hgb 30.6 pg (27.0-32.0); Mean Corpuscular Volume 95.8 fL (81-99); Mean Platelet Vol. 9.1 fl (6.2-12.0); Platelet Count 351 K/mm3 (150-450); RBC Distribution Width CV 12.4 % (11.6-14.6); RBC Distribution Width SD 44.1 fl (35.1-43.9); Red Blood Count 4.05 M/mm3 (4.2-5.4); White Blood Count 5.6 K/mm3 (4.4-11.0)
[2021-05-27 09:34] LABS: International Normalized Ratio 0.9; Prothrombin Time (Protime)PT. 11.9 SECONDS (11.7-14.9)
[2021-05-27 09:35] LABS: Partial Thromboplast Time 28.1 Seconds (24.1-36.2)
[2021-05-27 09:52] LABS: Anion Gap 8 (5-15); BUN 19 mg/dL (7-18); BUN/Creat Ratio 25.9 RATIO (10-20); Calcium,Total 8.5 mg/dL (8.5-10.1); Chloride 105 mmol/L (98-107); Creatinine, Serum 0.74 mg/dL (0.55-1.02); EST Glomerular Filtration Rate 85 mL/min (>60); Est Glom Filt Rate - Afr Amer 103 mL/min (>60); Glucose 89 mg/dL (74-106); Sodium Level 142 mmol/L (136-145)
[2021-05-27 09:56] LABS: AST(SGOT) 12 U/L (15-37); Alanine Aminotransfer ALT/SGPT 22 U/L (13-56); Albumin, Serum 3.3 g/dL (3.2-5.0); Alkaline Phosphatase 75 U/L (45-117); Bilirubin, Direct 0.07 mg/dL (0.00-0.30); Globulin 3.5 g/dL (2.2-4.2); Protein, Total 6.8 g/dL (6.4-8.2)
[2021-06-02] VITALS (8 sets, daily range): BP systolic 103–134; BP diastolic 64–82; PULSE 69–105; RESP 16–18; TEMP 36.1–36.8; O2SAT 96–100; BMI 22.8
[2021-06-02] MEDS: Lactated Ringers 1,000 ML 100 ML IV ×2 (09:52→13:42)
--- NOTE | 2021-06-02 09:52 | PCM.HP.BLA ---
History and Physical Date of Admission: 06/02/21 Visit Reasons: INGUINAL HERNIA Chief Complaint: left inguinal hernia [employer] Required: No Is patient in pain?: No Allergies Penicillins Allergy (Verified 04/07/21 13:57) Rash Medications albuterol sulfate 90 mcg/actuation aerosol inhaler 2 puff INHALATION Q6H PRN #8.5 g 12/19/19 [Rx Confirmed 04/07/21] losartan 50 mg tablet 75 mg PO DAILY tab 12/19/19 [History Confirmed 04/07/21] ascorbate calcium (vitamin C) 500 mg tablet 500 mg PO DAILY 04/07/21 [History Confirmed 04/07/21] biotin 2,500 mcg capsule 2,500 mcg PO DAILY 04/07/21 [History Confirmed 04/07/21] cholecalciferol (vitamin D3) 125 mcg (5,000 unit) capsule 125 mcg PO DAILY 04/07/21 [History Confirmed 04/07/21] zinc acetate 25 mg (zinc) capsule 25 mg PO DAILY 04/07/21 [History Confirmed 04/07/21] PFSH Medical History Allergies Carpal tunnel syndrome Diarrhea GERD (gastroesophageal reflux disease) Health care maintenance Hemorrhoids HTN (hypertension) IBS (irritable bowel syndrome) Laceration of right hand Laceration of right middle finger Severe headache Stomach ulcer Toenail fungus Surgical History History of carpal tunnel release of both wrists History of surgery on right wrist Family History Father Heart disease Asthma Bowel disease Sister Asthma Diabetes Hypertension Social History Smoking Status: Never smoker alcohol intake: never substance use type: does not use what type of physical activity do you participate in: walking frequency: daily HPI HPI HPI: MARCELA MCCLURE, is a 61 F who presents to the office today for surgical consultation regarding a chronic left inguinal hernia. The patient is referred by Dr. Josette Zeng and a written copy of my surgical consult recommendations will be returned to her. By report the patient has had a chronic left inguinal hernia. Its been previously recommended that she have it repaired but she is declined until this point. It is of note that the patient has chronic hypertension that is well controlled. She has a history of gastroesophageal reflux disease. She was previously controlled with Dexilant. She is ceased that medication and has altered to eating frequent small meals. She claims that her symptoms are adequately controlled. On today's visit now she admits that she takes it on a as needed basis but tries to avoid reflux medication She has had this bulging in the left groin for over a year. She is always been able to reduce it. She does not notice anything on the right. Family history is pertinent for her mother having had left carotid surgery. ROS General General: No weight change, appetite, fatigue, colon cancer, breast cancer or weakness HEENT HEENT: No difficulty swallowing, eye injury, eye surgery, swollen glands or hoarseness Endo Endocrine: No thyroid disease, diabetes mellitus, thyroid cancer, Hair loss, heat intolerance or cold intolerance Skin Skin: No rash or changing moles Breast Breast: No left breast lump, right breast lump, nipple discharge, breast pain, abnormal mammogram, abnormal US or breast enlargement Musc Musculoskeletal: No back problems, arthritis, rheumatoid arthritis, gout or joint pain Cardio Cardiovascular: Yes high blood pressure; No murmur, pacemaker, heart disease, atrial fibrillation, heart attack, heart stent, palpitations, shortness of breat with exertion or chest pain Psych Psychiatric: No depression, anxiety or hearing voices Resp Respiratory: No shortness of breath, No sleep apnea, No cough, No COPD, No asthma, No emphysema and No wheezing Gastro Gastrointestinal: No abdominal pain, No nausea or vomiting, No diarrhea, No constipation, No blood in stool, Yes acid reflux, Yes hemorrhoids, No ulcers, No gallbladder problem and No black,tarry stools Hollis Hematologic: No blood thinners, No blood disorders, No bleeding, No anemia and No blood clots Neuro Neurologic: No system reviewed and no additional complaints, except as documented, No as per HPI, No abnormal gait, No abnormal hearing, No abnormal movements, No abnormal speech, No behavioral changes, No burning sensations, No confusion, No convulsions, No disequilibrium, No dizziness, No localized weakness, No frequent falls, No headache(s), No lack of coordination, No loss of vision, No memory loss, No numbness, No other visual disturbances, No radicular pain, No restless legs, No sensory deficit, No syncope, No tingling, No tremor(s), No weakness and No other Exam Const General: cooperative, healthy appearing, comfortable and no acute distress Nutritional Appearance: underweight Orientation: alert, awake and oriented x3 HENMT Head: normal to inspection Eyes General: appearance normal, both eyes and all related structures Neck Neck: normal visual inspection Resp Effort & Inspection: normal respiratory effort Auscultation: clear to auscultation bilaterally Cardio Rate: regular rate Rhythm: regular rhythm Other: Bilateral carotids 3+. Soft 1/6 bruit on the left GI Palpation: soft and no hepatosplenomegaly Auscultation: normal bowel sounds Other: Right groin solid and intact Left groin obvious supra inguinal defect seemingly more medially placed. Palpable bowel reducible. Musc Cervical Spine: normal cervical lordosis Skin Other: Scattered areas of ecchymosis bilateral forearms Neuro Cognition: normal cognition Extrem General: no calf tenderness Psych Appearance: grossly normal COVID (Procedure Consent) Procedure Criteria Procedure Criteria: Yes Elective The surgeon/proceduralist and patient have discussed in detail the risk of exposure to and/or potential harm posed by the COVID-19 virus with having a surgery/procedure at this time versus the risk of delaying the surgery/procedure. It is not possible to know either the risk of delaying the surgery or procedure or chance of getting an infection with perfect accuracy, but a joint decision was made between the patient and the surgeon/proceduralist to proceed at this time with the scheduled surgery/procedure as indicated on the consent form. Assessment and Plan Assessment and Plan (1) Left inguinal hernia: Status: Chronic (2) Left carotid bruit: Status: Acute Orders: Orders: Carotid Duplex Ultrasound Today R09.89 Plan - Dr. Og Brunson MD: I recommend to the patient a carotid duplex exam because of the left carotid bruit identified. I recommended the patient a laparoscopic left inguinal herniorrhaphy with mesh. In detail discussed the technique, benefit, risk, alternatives. She has had an opportunity to ask and have questions answered. We will schedule procedure at her discretion. It appears that the patient is very active. I did discuss requirements postoperatively to allow for healing and resolution. I appreciate the opportunity of assisting with her surgical care The patient's carotid duplex imaging did not demonstrate any hemodynamically significant stenosis bilaterally. She is remained medically stable without change in her history and presentation from her office evaluation. History and physical exam has been repeated. Left groin has been marked. She again understands benefit, risk, alternatives. I anticipate a laparoscopic left inguinal hernia repair with mesh. Clean procedure. Og Brunson M.D., Gamal.Kenji.CAyushS. Copy: Dr. Josette Zeng I have re-examined the patient. There are no clinical changes since date of exam. Og Brunson M.D., F.Kenji.C.S.
--- NOTE | 2021-06-02 11:00 | HERN_PTH ---
PATIENT: MARCELA MCCLURE LOC: [facility] [place] U#:[id number] AGE/SX: 61/F ROOM: RE06/02/[address]: Dr. Og Brunson MD : 1960 BED: DIS: 06/02/2021 SPEC #: [id number] RECD: 06/02/21 14:17 STATUS: ANITA REElzbieta #: [id number] ERIC: 06/02/21 11:[address]: Og Brunson DEPT: SURGICAL PATHOLOGY RECD BY: Nikki Cardenas ENTERED: 06/03/21 09:09 SP TYPE: Hernia OTHR DR: Dr. Josette Zeng MD Tissues: HERNIA Procedures: Surgery Specimen Level II HEADER OPERATION: Laparoscopic inguinal hernia repair with mesh PRE-OP DIAGNOSIS: Left inguinal hernia TISSUE SUBMITTED: Hernia sac and contents MICROSCOPIC DIAGNOSIS Hernia sac and contents: Pieces of adipose tissue, clinically hernia sac and contents. SJ:alexander 06/04/2021 MICROSCOPIC DESCRIPTION Slides are reviewed. GROSS DESCRIPTION Received in fixative is one container labeled with the patient's name and designated hernia sac and contents. The specimen consists of two pieces of yellow adipose tissue measuring in aggregate 3 x 2 x 0.5 cm. No mass lesion is identified. The entire specimen is submitted in two cassettes. / JULIO CÉSAR:alexander 06/03/21 TC:5 [facility]: [id number]
--- NOTE | 2021-06-02 11:10 | EX.PCM.DISCH ---
Discharge Instructions Procedure General Surgery Diet Discharge Diet: Light diet - advance as tolerated (if you have questions about your diet instructions, please talk to you doctor.) Activity Discharge Activity: May Not Drive (for 3-5 days or while taking narcotic pain medicine.) May shower in (days): 1 Lifting Restrictions: 10 pounds Dressing / Incision Call your doctor if your incision/area has: Continuous Slow Oozing, Sudden Increased Bleeding, Increased Pain/ Swelling, Increased Redness and Foul Smelling Discharge Call your doctor if you observe: Fever of 101 or Higher Suture Line Care: Avoid Pulling/Pushing and Avoid Pinching/Bending Additional Dressing/Incision Instructions:: Change or remove dressing in 4 days. Leave steri-strips in place for 1 week. Follow Up Care Please Follow Up With: Og Brunson MD When: Call [phone] to make an appointment to be seen in about 10 days. Test Results: Test results from this visit will be discussed in further detail at your follow-up appointment, if applicable. Discharge Plan Admission Attending Provider: Og Brunson Primary Care Provider: Josette Zeng Discharge Orders/Prescriptions Prescriptions: No Action losartan 50 mg tablet 75 mg PO DAILY RF: 0 albuterol sulfate 90 mcg/actuation HFA aerosol inhaler 2 puff INHALATION Q6H PRN (Reason: shortness of breath or wheezing) Qty: 8.5 RF: 0 cholecalciferol (vitamin D3) 125 mcg (5,000 unit) capsule 125 mcg PO DAILY RF: 0 zinc acetate 25 mg (zinc) capsule 25 mg PO DAILY RF: 0 ascorbate calcium (vitamin C) 500 mg tablet 500 mg PO DAILY RF: 0 biotin 2,500 mcg capsule 2,500 mcg PO DAILY RF: 0 aspirin 325 mg Tablet 650 mg PO Q6H PRN (Reason: headaches) RF: 0
[2021-06-02] MEDS: Bupivacaine Mpf 0.5% 30 ML VIAL (11:46)
--- NOTE | 2021-06-02 12:25 | PCM.OPRPT ---
Problems Associated Problem List Diagnoses (1) Left inguinal hernia: Report of Operation Date of Procedure: 06/02/21 Pre-Operative Diagnosis: Indirect left inguinal hernia Post-Operative Diagnosis: Indirect left inguinal hernia, umbilical hernia Surgery/Procedure Performed:: Laparoscopic left inguinal herniorrhaphy with Bard 3D max extra-large mesh Lot [id number], reference [id number], expiry date 01/03/2026 Secure strap: Lot [id number], expiry date March 2022 Umbilical herniorrhaphy Description of Surgical Findings:: Timeout and informed consent was obtained. 61-year-old female was taken to the operating place upon the table underwent general endotracheal ovation esthesia. The abdomen was sterilely prepped and draped. 0.5% Marcaine was used as local anesthetic. Throughout the procedure total 30 cc was used. Skin sites were preanesthetized. The patient received clindamycin 900 g intravenously preoperatively. A vertical infraumbilical incision was created and so doing a umbilical hernia was identified with preperitoneal fatty tissue. This was sharply and bluntly dissected free. The sac and contents were amputated with electrocautery and submitted to specimen. A 10 mm trocar was inserted. 10mmHg pressure was used. 10 mm of scope inserted. No evidence of any trocar injuries. Right groin solid and intact. Indirect left inguinal hernia identified. 5 mm ports were placed in the left and right lower quadrant. A ilioinguinal nerve block was performed on the left. The peritoneum was incised carried medially. Blunt dissection was used to completely dissect free the indirect direct and femoral area. An extra-large Bard 3D max mesh was placed so as to cover the defect area it was secured in place laterally superiorly and medially with secure strap. Excellent positioning was achieved. The peritoneum was secured to itself with secure strap. Complete obliteration to the mesh was achieved. The abdomen was allowed to deflate through an antiviral valve. The umbilical defect was closed with simple sutures of 0 Nurolon. Skin edges approximated opted 4-0 Monocryl subdermal stitches. Steri-Strips Telfa OpSite dressings applied. Sponge and instrument and needle counts were reported the surgeon to be correct. Specimens umbilical hernia sac contents. Drains none. Blood loss minimal. The patient was taken to recovery room in satisfactory condition without apparent complication Og Brunson M.D., F.A.C.S. Surgeon: Og Brunson Type of Anesthesia: General Anesthesiologist: Linda Hannah
== END 2021-06-02 15:56 | disposition home or self-care (01) ==
LOC: SDC 08:57 → AC 08:59
PROVIDERS: Anesthesiology; PCP Internal Medicine; Referring Provider Surgery; Visit Provider Surgery
PROC: (CPT 49650; principal; 2021-06-02 10:40)
DX: K40.90 Unilateral inguinal hernia, without obstruction or gangrene, not specified as recurrent (principal); K42.9 Umbilical hernia without obstruction or gangrene; K21.9 Gastro-esophageal reflux disease without esophagitis; I10 Essential (primary) hypertension; Z79.899 Other long term (current) drug therapy
CPT/HCPCS: 00830; 49585; 49650; 36415; 80048; 80076; 85027; 85610; 85730; 88302; 93005; J7120; C1781; J2405

== ENCOUNTER → 2021-12-09 | Outpatient (CLI) | payer OTHER, SELFPAY ==
[2021-12-09 12:25] LABS: Anion Gap 10 (5-15); BUN 23 mg/dL (7-18); Calcium,Total 9.4 mg/dL (8.5-10.1); Chloride 104 mmol/L (98-107); EST Glomerular Filtration Rate 59 mL/min (>60); Est Glom Filt Rate - Afr Amer 72 mL/min (>60); Glucose 72 mg/dL (74-106); Potassium 3.7 mmol/L (3.5-5.1); Sodium Level 140 mmol/L (136-145)
== END | disposition home or self-care (01) ==
LOC: BIMLAB 09:06
PROVIDERS: PCP Internal Medicine; Referring Provider Internal Medicine; Visit Provider Internal Medicine
DX: I10 Essential (primary) hypertension (principal)
CPT/HCPCS: 36415; 80048

== ENCOUNTER → 2023-01-12 | Outpatient (CLI) | payer OTHER, SELFPAY ==
[2023-01-12 14:57] LABS: Hemoglobin 12.9 g/dL (12.0-15.0); Mean Corp Hgb Conc 33.1 g/dL (32-36); Mean Corpuscular Hgb 30.8 pg (27.0-32.0); Mean Corpuscular Volume 93.1 fL (81-99); Mean Platelet Vol. 9.6 fl (6.2-12.0); Platelet Count 359 K/mm3 (150-450); RBC Distribution Width CV 12.3 % (11.6-14.6); Red Blood Count 4.19 M/mm3 (4.2-5.4); White Blood Count 6.1 K/mm3 (4.4-11.0)
[2023-01-12 15:42] LABS: Anion Gap 7 (5-15); BUN 18 mg/dL (7-18); BUN/Creat Ratio 21.3 RATIO (10-20); Calcium,Total 8.9 mg/dL (8.5-10.1); Chloride 105 mmol/L (98-107); Cholesterol 205 mg/dL (200); Creatinine, Serum 0.84 mg/dL (0.55-1.02); EST Glomerular Filtration Rate 72 mL/min (>60); Est Glom Filt Rate - Afr Amer 87 mL/min (>60); Glucose 62 mg/dL (74-106); High Density Lipoprotein 76 mg/dL; Potassium 3.7 mmol/L (3.5-5.1); Sodium Level 136 mmol/L (136-145); Triglycerides 74 mg/dL; Very Low Density Lipoprotein 15 mg/dL (5-40)
== END | disposition home or self-care (01) ==
LOC: BIMLAB 13:34
PROVIDERS: PCP Internal Medicine; Visit Provider Nurse Practitioner Family
DX: I10 Essential (primary) hypertension (principal)
CPT/HCPCS: 36415; 80048; 80061; 84443; 85027

== ENCOUNTER → 2023-07-16 | Outpatient (CLI) | payer OTHER, SELFPAY ==
[2023-07-16 13:56] LABS: Anion Gap 6 (5-15); BUN 14 mg/dL (7-18); BUN/Creat Ratio 16.5 RATIO (10-20); Calcium,Total 8.5 mg/dL (8.5-10.1); Chloride 108 mmol/L (98-107); Creatinine, Serum 0.85 mg/dL (0.55-1.02); EST Glomerular Filtration Rate 71 mL/min (>60); Est Glom Filt Rate - Afr Amer 86 mL/min (>60); Glucose 82 mg/dL (74-106); Potassium 3.5 mmol/L (3.5-5.1); Sodium Level 140 mmol/L (136-145)
== END | disposition home or self-care (01) ==
LOC: BIMLAB 08:25
PROVIDERS: PCP Internal Medicine; Referring Provider Internal Medicine; Visit Provider Internal Medicine
DX: I10 Essential (primary) hypertension (principal)
CPT/HCPCS: 36415; 80048

== ENCOUNTER → 2023-08-24 | Outpatient (CLI) | payer MEDICARE, BC, SELFPAY ==
--- NOTE | 2023-08-24 14:57 | BI_ITS ---
MAMMOGRAPHY - BILATERAL SCREENING REASON FOR EXAM: Female, 63 years old. Routine annual screening examination. PERTINENT HISTORY: Non-contributory. TECHNIQUE: Digital bilateral breast narda (3D mammographic acquisition) in the CC and MLO projections. 2-D mediolateral oblique (MLO) and craniocaudad (CC) views of both breasts were obtained. CAD: Full Field Digital Mammography with Computer Added Detection was performed. COMPARISON: Comparison is made with prior study April 04, 2021. FINDINGS: Breast Composition: The breasts are heterogeneously dense, which may obscure small masses. There are no dominant masses or suspicious calcifications. No other significant abnormalities are identified. There has been no significant change since the prior study. BI/SCRN MAMM (CAD)W/NARDA BILAT IMPRESSION: Stable bilateral screening mammogram. Yearly follow-up mammogram recommended. (A) ASSESSMENT CATEGORY: BIRADS Category 1: Negative. A letter regarding these results will be sent to the patient by the facility within 30 days. Approximately 10% of breast cancers are not detected by mammography. A normal mammogram should not delay biopsy of a clinically suspicious abnormality. [id number] Electronically Signed: Cuong Castle MD at 15:32 EST ,
--- NOTE | 2023-08-24 15:18 | BD_ITS ---
STUDY: DUAL ENERGY X-RAY ABSORPTIOMETRY / DXA REASON FOR EXAM: Female, 63 years old. Post Menopausal TECHNIQUE: Bone Mineral Density (BMD) measurements of lumbar spine and bilateral hips were obtained. COMPARISON: Comparison is made with prior study dated January 25, 2020. FINDINGS: Lumbar Spine (L1-L4): g/cm2 (1.193) / T-score (1.4) / Z-score (3.2) Findings are suggestive of normal bone density with a low fracture risk. Left Femur Total: g/cm2 (0.909) / T-score (-0.3) / Z-score (1.0) Left Femoral Neck: g/cm2 (0.856) / T-score (0.1) / Z-score (1.6) Right Femur Total: g/cm2 (0.944) / T-score (0.0) / Z-score (1.3) Right Femoral Neck: g/cm2 (0.871) / T-score (0.2) / Z-score (1.7) The T-Scores on the most recent prior examination were: Lumbar Spine (L1-L4): There has been worsening of bone density since the previous examination. Left Femur Total: which represents a worsening of 3.5%. Right Femur Total: which represents a worsening of 7.6%. BD/Dexa Bone Density Study IMPRESSION: The patient is considered normal as outlined below according to World Ariel Organization (WHO) criteria with a low fracture risk. There has been worsening of bone density since the previous examination. Reference Information: The T-score is the number of standard deviations above or below the standard which is normal for young adults at their peak bone mineral density. The World Health Organization (WHO) interprets the T-scores as follows: Above -1 Normal bone density Between -1 and -2.5 Osteopenia Equal to / or below -2.5 Osteoporosis As a practical clinical guideline, osteopenia may be graded as follows: Mild -1 through -1.5 Moderate -1.6 through -2.0 Severe -2.1 through -2.4 The Z-score is the number of standard deviations above or below age-matched controls. A Z-score of less than -1.5 would be considered abnormal. References: 1. NIH Osteoporosis and Related Bone Diseases www osteo.org 2. International Society for Clinical Densitometry www iscd.org 3. National Osteoporosis Foundation www nof.org Electronically Signed: Cuong Castle MD at 15:44 EST ,
--- OUTSIDE RECORDS SUMMARY | 2023-08-24 16:51 | XMS RPT_ITS | CCD ---
Author Name Unknown Address [address] [place] [address] [place] [address] Organization [facility] Care Team Providers Care Corporate Investigator Name Role Phone VaughnzneyJosette Primary Care Provider Medications Completed/Discontinued Medications Medication Drug Class(es) Dates Sig (Normalized) Sig (Original) bacitracin 0.5 unt/mg / polymyxin b 10 unt/mg ophthalmic ointment (4 sources) Polymyxin-class Antibacterial Start: 01-23-2011 bacitracin-polymyx in b (POLYSPORIN) OPHTHALMIC ophthalmic ointment Indications: Peripheral opacity of cornea Use 1 application in both eyes every evening. 1 Bottle 0 01/23/2011 Active Results Test Name Value Interpretation Reference Range Facil ity Encounters Encounter Date Encounter Type Care Provider Facility Start: 05-27-2020 End: 05-27-2020 Patient encounter procedure External Provider [facility] Start: 05-27-2020 Results Only External Provider [facility] Start: 05-11-2020 End: 05-11-2020 Patient encounter procedure Garfield Warren Work Phone: [facility] Start: 05-11-2020 Results [facility] Start: 05-04-2020 End: 05-04-2020 Patient encounter procedure Liamd Mojolieli Work Phone: [facility] Start: 05-04-2020 Results Only Garfield Blancouchl i Work Phone: [facility] [place] Procedures Date Procedure Procedure Detail Performing Clinician Start: 05-27-2020 EXTERNAL LAB External P rovider Start: 05-27-2020 EXTERNAL PROCEDURE Exte rnal Provider Start: 05-11-2020 PT ED PATIENT INFORMATION Garfield Warren Work Phone: Start: 05-04-2020 PT ED PATIENT INFORMATION Garfield Warren Work Phone: Start: 11-20-2009 Mammography Garfield Blanco galen Plan of Treatment Date Care Activity Detail Author Start: 04-09-2020 Influenza vaccination INFLUENZA (#1) [facility] Start: 11-20-2010 Mammography MAMMOGRAM [facility] Start: 01-13-2008 SHINGRIX VACCINE (1 of 2) ALEX GRIX VACCINE (1 of 2) [facility] Start: 01-13-2008 Tuberculosis screening COLOREC ADINA CANCER SCREENING,SEE MODIFIER [facility] Start: 2003 [facility] Start: 2003 LIPID SCREEN LIPID SCREEN [facility] Start: 01-13-1988 HPV TESTING HPV TESTING [facility] Start: 1979 PAP TESTING PAP TESTING [facility] Start: 1977 Urine microalbumin profile DTAP,TDAP ,TD (1 - Tdap) [facility] Start: 01-13-1976 HEPATITIS C SCREENING HEPATITIS C SC REENING [facility] Start: 01-13-1976 HIV SCREENING HIV SCREENING [facility] PT ED [facility] Payers Date Payer Category Payer Private Health Insurance [employer] PPO [id number] 2020-Present PPO [id number] Social History Date Type Detail Facility Start: 02-04-2011 End: 05-27-2020 Tobacco smoking status NHIS Never smoker [facility] Start: 02-04-2011 End: 05-27-2020 Alcohol intake Current non-drinker of alcohol (finding) [facility] Sex Assigned At Not on file [facility] Exposure to SARS-CoV -2 (event) Not sure [facility] Exposure to SARS-CoV -2 (event) Yes [facility] Sex Assigned At Female [facility] Summary Purpose Family History No Family History Records FoundNo Family History Records FoundNo Family History Records FoundNo Family History Records Found Advance Directives No Advanced Directives Records FoundNo Advanced Directives Records FoundNo Advanced Directives Records FoundNo Advanced Directives Records Found Additional Source Comments Source Comments (unrecognize d section and content) In the event this informatio n is protected by the Federal Confidentiality of Alcohol and Drug Abuse Patient Records regulations: The Federal rules restrict any use of the information to criminally investigate or prosecute any alcohol or drug abuse patient.[facility] the event this information is protected by the Federal Confidentiality of Alcohol and Drug Abuse Patient Records regulations: The Federal rules restrict any use of the information to criminally investigate or prosecute any alcohol or drug abuse patient.[facility] the event this information is protected by the Federal Confidentiality of Alcohol and Drug Abuse Patient Records regulations: The Federal rules restrict any use of the information to criminally investigate or prosecute any alcohol or drug abuse patient.[facility] the event this information is protected by the Federal Confidentiality of Alcohol and Drug Abuse Patient Records regulations: The Federal rules restrict any use of the information to criminally investigate or prosecute any alcohol or drug abuse patient.[facility] INFORMATION SOURCE (unrecogn ized section and content) DATE CREATED AUTHOR AUTHOR'S MERCEDES ATION 12/15/2020 [facility] DATE CREATED AUTHOR AUTHOR'S ORGANIZ ATION 05/18/2021 [facility] DATE CREATED AUTHOR AUTHOR'S ORGANIZ ATION 08/29/2021 [facility] FOR RECORDS PERTAINING TO PATIENTS WHO ARE OR HAVE BEEN ENROLLED IN A CHEMICAL DEPENDENCY/SUBSTANCEABUSE PROGRAM, SOME INFORMATION MAY BE OMITTED. This clinical summary was aggregated from multiple sources. Caution should be exercised in using it in the provision of clinical care. This summary normalizes information from multiple sources, and as a consequence, information in this document may materially change the coding, format and clinical context of patient data. In addition, data may be omitted in some cases. CLINICAL DECISIONS SHOULD BE BASED ON THE PRIMARY CLINICAL RECORDS. [facility]. provides no warranty or guarantee of the accuracy or completeness of information in this document.
== END | disposition home or self-care (01) ==
LOC: OPBD 14:57
PROVIDERS: PCP Internal Medicine; Referring Provider Internal Medicine; Visit Provider Internal Medicine
DX: Z12.31 Encounter for screening mammogram for malignant neoplasm of breast (principal); Z78.0 Asymptomatic menopausal state
CPT/HCPCS: 77063; 77067; 77080

== ENCOUNTER → 2024-02-07 | Outpatient (CLI) | payer MEDICARE, BC, SELFPAY ==
[2024-02-07 12:18] LABS: Absolute Lymphocyte Count 1.97 X10^3/uL (0.83-4.51); Absolute Neutrophil Count 3.9 X10^3/uL (2.0-7.7); Basophil# 0.09 X10^3/uL; Basophil% 1.4 % (0-1); Eosinophil# 0.11 X10^3/uL; Eosinophils% 1.7 % (0-5); Hematocrit 39.2 % (37-47); Hemoglobin 12.3 g/dL (12.0-15.0); Lymphocyte # 1.97 X10^3/ul (0.83-4.51); Lymphocyte % 31.1 % (19-41); Mean Corp Hgb Conc 31.4 g/dL (32-36); Mean Corpuscular Hgb 29.1 pg (27.0-32.0); Mean Corpuscular Volume 92.9 fL (81-99); Mean Platelet Vol. 9.8 fl (6.2-12.0); Monocyte# 0.27 X10^3/uL; Monocyte% 4.3 % (0-10); NRBC Flagged by Analyzer 0 % (0-5); Neutrophil # 3.87 X10^3/uL (2.7-7.7); Neutrophil % 61.2 % (47-70); Platelet Count 383 K/mm3 (150-450); RBC Distribution Width CV 12.5 % (11.6-14.6); RBC Distribution Width SD 42.5 fl (35.1-43.9); Red Blood Count 4.22 M/mm3 (4.2-5.4); White Blood Count 6.3 K/mm3 (4.4-11.0)
[2024-02-07 12:43] LABS: ALB/GLOB Ratio 1.1 RATIO (0.9-2.4); AST(SGOT) 19 U/L (15-37); Alanine Aminotransfer ALT/SGPT 22 U/L (13-56); Albumin, Serum 3.8 g/dL (3.2-5.0); Alkaline Phosphatase 76 U/L (45-117); Anion Gap 10 (5-15); BUN 18 mg/dL (7-18); BUN/Creat Ratio 21.8 RATIO (10-20); Calcium,Total 9.3 mg/dL (8.5-10.1); Chloride 106 mmol/L (98-107); Cholesterol 199 mg/dL (200); Creatinine, Serum 0.83 mg/dL (0.55-1.02); EST Glomerular Filtration Rate 74 mL/min (>60); Est Glom Filt Rate - Afr Amer 89 mL/min (>60); Globulin 3.4 g/dL (2.2-4.2); Glucose 56 mg/dL (74-106); High Density Lipoprotein 77 mg/dL; Potassium 4.4 mmol/L (3.5-5.1); Protein, Total 7.2 g/dL (6.4-8.2); Sodium Level 139 mmol/L (136-145); T4 Free Direct 0.92 ng/dL (0.76-1.46); Thyroid Stim Hormone (TSH) 0.87 uIU/mL (0.358-3.74); Triglycerides 79 mg/dL; Very Low Density Lipoprotein 16 mg/dL (5-40)
== END | disposition home or self-care (01) ==
LOC: BIMLAB 10:44
PROVIDERS: PCP Internal Medicine; Referring Provider Internal Medicine; Visit Provider Internal Medicine
DX: I10 Essential (primary) hypertension (principal)
CPT/HCPCS: 36415; 80053; 80061; 84439; 84443; 85025

== ENCOUNTER → 2024-08-16 | Outpatient (CLI) | payer MEDICARE, BC, SELFPAY ==
[2024-08-16 12:28] LABS: Anion Gap 3 (5-15); BUN 14 mg/dL (7-18); BUN/Creat Ratio 16.1 RATIO (10-20); Calcium,Total 9.4 mg/dL (8.5-10.1); Chloride 108 mmol/L (98-107); Creatinine, Serum 0.87 mg/dL (0.55-1.02); EST Glomerular Filtration Rate 69 mL/min (>60); Est Glom Filt Rate - Afr Amer 84 mL/min (>60); Glucose 94 mg/dL (74-106); Potassium 4.2 mmol/L (3.5-5.1); Sodium Level 140 mmol/L (136-145)
== END | disposition home or self-care (01) ==
LOC: BIMLAB 08:32
PROVIDERS: PCP Internal Medicine; Referring Provider Internal Medicine; Visit Provider Internal Medicine
DX: I10 Essential (primary) hypertension (principal)
CPT/HCPCS: 36415; 80048

== ENCOUNTER → 2024-09-26 | Outpatient (CLI) | payer MEDICARE, BC, SELFPAY ==
--- NOTE | 2024-09-26 10:54 | BI_ITS ---
PROCEDURE: SCRN MAMM (CAD)W/NARDA BILAT REASON FOR EXAM: F, Age 64 y/o, annual mammographic follow-up. No family history. TECHNIQUE: Bilateral screening digital breast tomosynthesis with 2D and 3D images. Computer aided detection. COMPARISON: Prior exam(s) dating back to August 24, 2023.. FINDINGS: The breasts are heterogeneously dense which may obscure small masses. Stable examination. No suspicious masses, areas of developing architectural distortion, or suspicious calcifications. BI/SCRN MAMM (CAD)W/NARDA BILAT IMPRESSION: BI-RADS 1: NEGATIVE. RECOMMEND ANNUAL MAMMOGRAPHIC SCREENING. Follow-up code: Routine Follow-up The patient will be notified of the results by letter. Reading Location: [place] [id number]
== END | disposition home or self-care (01) ==
LOC: OPBI 10:54
PROVIDERS: PCP Internal Medicine; Referring Provider Internal Medicine; Visit Provider Internal Medicine
DX: Z12.31 Encounter for screening mammogram for malignant neoplasm of breast (principal)
CPT/HCPCS: 77063; 77067

== ENCOUNTER 2024-10-10 08:18 | Day surgery (SDC) | payer MEDICARE, BC, SELFPAY ==
[2024-10-10 08:29] VITALS: BP 137/95; PULSE 100; RESP 16; TEMP 36.9; O2SAT 100; BMI 22.3
--- NOTE | 2024-10-10 08:47 | PCM.PRE.AN2 ---
ASA Classification* ASA Classification ASA Classification: 2 Assessment & Plan Anesthesia* Anesthesia Assessment Anesthesia Assessment: Discussed sedation and/or anesthesia options, risks, benefits, and alternatives with patient/parents/legal guardian/POA. Questions invited. The patient/parents/legal guardian/POA seems to understand and agrees to proceed with anesthesia plan. Reviewed the physical assessment, medical history, allergy history and patient home medications list prior to surgery/procedure/anesthetic and documented any changes. Performed airway and anesthesia risk assessments. Anesthesia Type Anesthesia Type: MAC History Source History Obtained from:: Patient and Chart Anesthesia Focused Assessment* Temperature: 98.5 F Pulse Rate: 100 Blood Pressure: 137/95 Respiratory Rate: 16 Pulse Ox: 100 Oxygen Delivery Method: Room Air Airway Assessment Mouth opens: >3 cm Mallampati Score: IV Teeth Condition: Missing (Patient missing right upper molar. Rest are tight.) Neck Range of motion (ROM): Full ROM Focused Labs Anesthesia Preop lab: CBC WBC 6.3 K/mm3 (4.4-11.0) 02/07/24 10:44 02/07/24 RBC 4.22 M/mm3 (4.2-5.4) 02/07/24 10:44 02/07/24 Hgb 12.3 g/dL (12.0-15.0) 02/07/24 10:44 02/07/24 Hct 39.2 % (37-47) 02/07/24 10:44 02/07/24 Plt Count 383 K/mm3 (150-450) 02/07/24 10:44 02/07/24 CHEMISTRY Potassium 4.2 mmol/L (3.5-5.1) 08/16/24 08:32 08/16/24 Sodium 140 mmol/L (136-145) 08/16/24 08:32 08/16/24 BUN 14 mg/dL (7-18) 08/16/24 08:32 08/16/24 Creatinine 0.87 mg/dL (0.55-1.02) 08/16/24 08:32 08/16/24 Glucose 94 mg/dL (74-106) 08/16/24 08:32 08/16/24 TSH 0.87 uIU/mL (0.358-3.74) 02/07/24 10:44 02/07/24 COAG PT 11.9 SECONDS (11.7-14.9) 05/27/21 08:53 05/27/21 Pre-Assessment Diagnosis/Proposed Procedure Planned Operative Procedure(s): COLONOSCOPY Anesthesia History Anesthesia History - solar technician: Anesthesia History - solar technician Hx Hospitalization No 10/05/24 13:07 Any Problems With Anesthesia Yes: PONV 10/05/24 13:07 Cholinesterase deficiency No 10/05/24 13:07 You/Your Family Experience No 10/05/24 13:07 fever (hyperthermia) with Relationship Recent Exposure to Contagious No 10/10/24 08:29 Disease Does patient have nerve No 10/05/24 13:07 stimulator Patient instructed to have device shut off --Does patient have Pacemaker No 10/10/24 08:29 or ICD? When Was Last Pacemaker Check QUESTION #4 FULL TEXT: You/Your Family Experience fever (hyperthermia) with Anesthesia Last Oral Intake Last Oral intake: Last Oral Intake NPO since 05:00 10/10/24 08:29 Meds taken in AM with sips of water? Meds patient instructed to take am of surgery Any additional information?: Yes NPO since: 05:00 (Patient finished prep at 5 AM.) Meds taken in AM with sips of water?: Yes PONV PONV - solar technician: PONV - solar technician Female Yes 10/05/24 13:07 HX of Motion Sickness Yes 10/05/24 13:07 HX of N/V After Surgery Yes 10/05/24 13:07 Non-Smoker Yes 10/05/24 13:07 Duration of Surgery greater No 10/05/24 13:07 than 60 minutes Number of Risk Factors 4 10/05/24 13:07 PONV Score Severe Risk 10/05/24 13:07 Height & Weight Height & Weight: Anesthesia: Height & Weight Height 5 ft 3 in 10/10/24 08:29 Weight: 57.153 kg 10/10/24 08:29 Body Mass Index (BMI) 22.3 10/10/24 08:29 Respiratory Assessment Respiratory Assessment - solar technician: Respiratory Tract Infection Hx - solar technician Hx Respiratory Tract Infection No 10/05/24 13:07 STOP Sleep Apnea STOP Sleep Apnea - solar technician: STOP Sleep Apnea - solar technician Hx Hypertension Yes: per pt, controlled on 10/05/24 13:07 meds Hx Sleep Apnea No 10/05/24 13:07 CPAP No 10/05/24 13:07 BIPAP Do you snore loudly (louder Yes 10/05/24 13:07 than talking or can be heard Do you often feel tired/ No 10/05/24 13:07 fatigued/ sleepy during daytime? Has anyone observed you stop No 10/05/24 13:07 breathing during sleep? STOP Results Positive 10/05/24 13:07 QUESTION #5 FULL TEXT : Do you snore loudly (louder than talking or can be heard through closed doors)? Tobacco Use History Tobacco Use History - solar technician: Tobacco Use History - solar technician Tobacco Use Smoking Status Never smoker 10/05/24 13:07 Hx Tobacco Use No 10/05/24 13:07 Years Smoking Packs Smoked per Day Smoking Cessation Date was within the last 15 years Hx Smoking Cessation Date Hx Smoking Cessation Counseling Hematologic Medial History Hematologic Hx - solar technician: Hematologic Medical Hx - documentation coordinator Hx of Blood Transfusion No 10/05/24 13:07 Hx of Transfusion in last 3 No 10/05/24 13:07 Months Date of Last Transfusion (if within last 3 months) Ever experience any problems No 10/05/24 13:07 with transfusion(s)? Specify any problems Hx of Preganancy in last 3 No 10/05/24 13:07 Months Nurse Filling Out Transfusion MGRIFFITH 10/05/24 13:07 & Questions: Date: 10/05/24 10/05/24 13:07 Time: 13:09 10/05/24 13:07 Patient unable to answer at this time (ie. confused, unrespo /Reproduction History /Reproductive History - solar technician: /Reproductive Hx- solar technician Hx Now No 10/05/24 13:07 Gestational Age (in weeks): EDC: Hx Hx Para Hx Section SAB No 10/05/24 13:07 PFSH Medical History Excessive bleeding Migraine headache History of IBS Leg cramps Chest wall muscle strain Strain of cervical portion of both trapezius muscles Cervical myofascial strain Muscle cramps Colon cancer screening KEE (acute kidney injury) COVID-19 PONV (postoperative nausea and vomiting) Post-menopausal Wears glasses Easy bruising Non-smoker History of edema Cardiology follow-up encounter History of stress test Toenail fungus Health care maintenance Laceration of right hand Laceration of right middle finger GERD (gastroesophageal reflux disease) IBS (irritable bowel syndrome) Carpal tunnel syndrome Allergies Severe headache Stomach ulcer Hemorrhoids HTN (hypertension) Home Medications ?Medication ?Instructions ?Recorded ?Last Taken ?Type albuterol sulfate 90 mcg/actuation 2 puff inhalation Q6H PRN 12/19/19 Unknown Rx aerosol inhaler shortness of breath or wheezing #8.5 grams ascorbate calcium (vitamin C) 500 500 mg PO DAILY 04/07/21 Unknown History mg tablet biotin 2,500 mcg capsule 2,500 mcg PO DAILY 04/07/21 Unknown History cholecalciferol (vitamin D3) 125 125 mcg PO DAILY 04/07/21 Unknown History mcg (5,000 unit) capsule zinc acetate 25 mg (zinc) capsule 25 mg PO DAILY 04/07/21 Unknown History aspirin 325 mg tablet 650 mg PO Q6H PRN headaches 08/29/24 10/03/24 History losartan 50 mg tablet 50 mg PO DAILY 10/05/24 10/10/24 History Allergy/AdvReac Type Severity Reaction Status Date / Time Penicillins Allergy Rash Verified 10/10/24 08:29 Family History Father Heart disease Asthma Bowel disease Colitis, Diverticulitis Sister Asthma Diabetes Hypertension Grandfather Colon cancer Paternal Surgical History History of left inguinal hernia repair (~05/2021) History of wisdom tooth extraction History of colonoscopy History of surgery on right wrist History of carpal tunnel release of both wrists Social History household members: spouse current occupational status: employed Smoking Status: Never smoker alcohol intake: never substance use type: does not use what type of physical activity do you participate in: walking frequency: daily Review of Systems (Anesthesia) ROS Narrative System reviewed and no additional complaints, except as documented.
[2024-10-10 08:55] VITALS: BP 137/95; PULSE 100; RESP 16; TEMP 36.9; O2SAT 100
--- NOTE | 2024-10-10 09:36 | H&P.OPEN ---
HPI - General HPI Narrative MARCELA MCCLURE, is a 64 F who presents for screening colonoscopy. Her last colonoscopy was 10 years ago. She denies abdominal pain or blood in stool. She does have family history of colon cancer in her father PFSH Medical History Excessive bleeding Migraine headache History of IBS Leg cramps Chest wall muscle strain Strain of cervical portion of both trapezius muscles Cervical myofascial strain Muscle cramps Colon cancer screening KEE (acute kidney injury) COVID-19 PONV (postoperative nausea and vomiting) Post-menopausal Wears glasses Easy bruising Non-smoker History of edema Cardiology follow-up encounter History of stress test Toenail fungus Health care maintenance Laceration of right hand Laceration of right middle finger GERD (gastroesophageal reflux disease) IBS (irritable bowel syndrome) Carpal tunnel syndrome Allergies Severe headache Stomach ulcer Hemorrhoids HTN (hypertension) Home Medications ?Medication ?Instructions ?Recorded ?Last Taken ?Type albuterol sulfate 90 mcg/actuation 2 puff inhalation Q6H PRN 12/19/19 Unknown Rx aerosol inhaler shortness of breath or wheezing #8.5 grams ascorbate calcium (vitamin C) 500 500 mg PO DAILY 04/07/21 Unknown History mg tablet biotin 2,500 mcg capsule 2,500 mcg PO DAILY 04/07/21 Unknown History cholecalciferol (vitamin D3) 125 125 mcg PO DAILY 04/07/21 Unknown History mcg (5,000 unit) capsule zinc acetate 25 mg (zinc) capsule 25 mg PO DAILY 04/07/21 Unknown History aspirin 325 mg tablet 650 mg PO Q6H PRN headaches 08/29/24 10/03/24 History losartan 50 mg tablet 50 mg PO DAILY 10/05/24 10/10/24 History Allergy/AdvReac Type Severity Reaction Status Date / Time Penicillins Allergy Rash Verified 10/10/24 08:29 Family History Father Heart disease Asthma Bowel disease Colitis, Diverticulitis Sister Asthma Diabetes Hypertension Grandfather Colon cancer Paternal Surgical History History of left inguinal hernia repair (~05/2021) History of wisdom tooth extraction History of colonoscopy History of surgery on right wrist History of carpal tunnel release of both wrists Social History household members: spouse current occupational status: employed Smoking Status: Never smoker alcohol intake: never substance use type: does not use what type of physical activity do you participate in: walking frequency: daily Past Medical/Surgical History Planned Operation Planned Operative Procedure(s): COLONOSCOPY S.O.S: No Previous Hospitalizations/Surgeries HX Hospitalizations: No HX of Surgeries: [facility] R WRIST GROWTH REMOVED Any Problems With Anesthesia: Yes (PONV) You/Your Family Experience Fever (Hyperthermia) With Anes: No Cholinesterase deficiency: No Cardiovascular Hx Chest Pain within Last 2 months: No Hx of Irregular Heartbeat and/or Afib: No (PT [facility] DR. TILLMAN) Hx Heart Attack: No Hx Congestive Heart Failure: No Hx Rheumatic Fever: No Hx Hypertension: No Hx Internal Defibrillator: No Hx Pacemaker: No Hx Cardiac Catheterization: No Hx Cardiac Surgery/Stents/Etc.: No Hx Stress Test: Yes (PONCE 2YRS AGO) Hx Pain in Legs when Walking/Leg Cramps: No Respiratory Chronic Cough: No HX of Shortness of Breath: Yes Hoarseness: No Hx Chronic Obstructive Pulmonary Disease (COPD): No Hx Asthma: No Hx Emphysema: No Hx Sleep Apnea: No CPAP: No Hx Respiratory Tract Infection/Cold (presently): No Do You Snore Loudly (louder than talking or can be heard): Yes Do You Often Feel Tired/ Fatigued/ Sleepy Dring Daytime?: No Has Anyone Observed You Stop Breathing During Sleep?: No Result (for STOP score): Negative Hx Smoking: No Smoking Status: Never smoker Gastrointestinal Controlled With Meds: Yes Hx Gastrointestinal Disorders: Yes (IBS) Hx Gastrointestinal Bleed: No Hx Ulcer: Yes Hx Hiatal Hernia: No Difficulty Chewing/Swallowing: No Special diet followed at home: Yes (BLAND DIET) Hx Unplanned Weight Loss of 20#: No (15# OVER 4 MONTHS) HX Unplanned Weight Gain of 20#: No Neurological Hx Seizures: No HX Syncope/Blackout Spells/Unconsciousness: No Hx Transient Ischemic Attacks (TIA): No Hx Multiple Sclerosis: No Hx Parkinson's Disease: No Hx Head/Neck Injury: No Hx Headaches: Yes Hx Back Injury/Pain: No Recent Onset of Speech Difficulty: No Restless Legs: No Does patient have nerve stimulator: No Blood Disorder Hx Leukemia: No Bleeding Tendencies: No Hx Deep Vein Thrombosis: No Hx High Cholesterol: No Blood Transmitted Disease: No Hx Hepatitis: No Hx Cirrhosis: No Hx Anemia: No Hx Blood Disorders: No Reproduction : No Is Patient Lactating: No Hx Hysterectomy: No Hx Tubal Ligation: No Are You Post Menopause: Yes Genitourinary Hx Renal Disease: No Musculoskeletal Hx Arthritis: Yes Hx Rheumatoid Arthritis: No Hx Gout: No Recent Onset of an Orthopedic Problem: No Endocrine Hx Diabetes: No Thyroid Disease: No Hx Steroid Therapy: No Psycho/Social Hx Substance Use: No Hx Alcohol Use: No Hx Anxiety: Yes Hx Depression: Yes Mental Illness: No Hx Dementia: No Miscellaneous Hx Cancer: No Recent Exposure to Contagious Disease: No Hx of C-Diff: No Any Loose Teeth: No Allergies Penicillins Allergy (Verified 10/10/24 08:29) Rash Discharge Is Pt Admitted From a Alf, or a Long-Term: No Who Could Help: family After D/C, Where Do you Plan to Go: Return Home From the [facility] History Number of Risk Factors: 4 Vital Signs Vital Signs Vital Signs: 10/10/24 08:29 10/10/24 08:29 10/10/24 08:55 Temperature 98.5 F 98.5 F Temperature Source Temporal Pulse Rate 100 100 Respiratory Rate 16 16 Respiratory Pattern Normal Blood Pressure 137/95 H 137/95 H Blood Pressure Mean 109 Blood Pressure Source Monitor Blood Pressure Position Sitting Blood Pressure Location Left Arm Pulse Ox 100 100 Oxygen Delivery Method Room Air Room Air Weight Weight: 126 lb Body Mass Index (BMI) 22.3 Physical Exam Const alert and oriented x3 HEENT normocephalic Eyes PERRL Resp normal respiratory effort and normal air movement Cardio regular rate and regular rhythm GI soft to palpation, non-tender and non-distended Extremity normal to inspection Assessment & Plan Assessment/Plan (1) Encounter for screening for malignant neoplasm of colon: PLAN: I explained endoscopy in detail to the patient. I explained the risks including but not limited to stroke or heart attack with anesthesia, perforation of the GI tract, bleeding, infection. I explained that any of these could necessitate further emergency surgery. The patient understands and all questions were answered sufficiently. The patient wishes to proceed with procedure. Serge Duarte MD Pager: [facility] [address] [place] [address], [address] [place] [address] Office: Surgery Risks - Colonoscopy Risks Include but are not Limited To: Risks include but are not limited to: Bleeding, perforation requiring further surgery, inability to complete colonoscopy requiring barium enema.
[2024-10-10 10:00] VITALS: BP 137/95; BP 95/63; PULSE 72; RESP 16; TEMP 36.3; O2SAT 97
--- NOTE | 2024-10-10 10:02 | OP.CCLET_ITS ---
10/10/2024 Josette Zeng MD [address] [place] [address] [place] [address] Re : Colonoscopy procedure for Princess Monte Dear Dr. Zeng This procedure was performed on Thursday, October 10, 2024. My impressions and recommendations are as follows: Impressions : - The entire examined colon is normal on direct and retroflexion views. - No specimens collected. Recommendations : - Discharge patient to home. - Resume previous diet. - Continue present medications. - Repeat colonoscopy in 10 years for screening purposes. My findings are described in the full procedure note, which is enclosed. If I can be of further assistance, please feel free to contact me at Doctor phone number(s): , Work: . Sincerely, Serge Duarte MD 10/10/2024 10:02:00 AM This report has been signed electronically.
--- NOTE | 2024-10-10 10:02 | OP.COLON_ITS ---
Patient Name: Princess Monte Procedure Date: 10/10/2024 9:42 AM Date of : 1960 Age: 64 Procedure: Colonoscopy Indications: Screening for colorectal malignant neoplasm Providers: Serge Duarte MD Referring MD: Josette Zeng MD Medicines: Propofol per Anesthesia Patient Profile: This is a 64 year old female. Refer to note in patient chart for documentation of history and physical. Last Colonoscopy: 10 years ago. Complications: No immediate complications. Procedure: Pre-Anesthesia Assessment: - Prior to the procedure, a History and Physical was performed, and patient medications and allergies were reviewed. The patient's tolerance of previous anesthesia was also reviewed. The risks and benefits of the procedure and the sedation options and risks were discussed with the patient. All questions were answered, and informed consent was obtained. Prior Anticoagulants: The patient has taken no anticoagulant or antiplatelet agents. After reviewing the risks and benefits, the patient was deemed in satisfactory condition to undergo the procedure. After I obtained informed consent, the scope was passed under direct vision. Throughout the procedure, the patient's blood pressure, pulse, and oxygen saturations were monitored continuously. The Colonoscope was introduced through the anus and advanced to the cecum, identified by appendiceal orifice and ileocecal valve. The colonoscopy was performed without difficulty. The patient tolerated the procedure well. The quality of the bowel preparation was good. The ileocecal valve, appendiceal orifice, and rectum were photographed. Scope In: 9:49:20 AM Scope Withdrawal Time 0 hours 6 minutes 1 second Scope Out: 10:00:04 AM Total Procedure Duration Time 0 hours 10 minutes 44 seconds Findings: The entire examined colon appeared normal on direct and retroflexion views. Impression: - The entire examined colon is normal on direct and retroflexion views. - No specimens collected. Recommendation: - Discharge patient to home. - Resume previous diet. - Continue present medications. - Repeat colonoscopy in 10 years for screening purposes. Procedure Code(s): --- Professional --- 01743, Colonoscopy, flexible; diagnostic, including collection of specimen(s) by brushing or washing, when performed (separate procedure) Diagnosis Code(s): --- Professional --- Z12.11, Encounter for screening for malignant neoplasm of colon CPT copyright 2021 [employer] [place] [employer]. All rights reserved. The codes documented in this report are preliminary and upon steel barrel reamer review may be revised to meet current compliance requirements. Serge Duarte MD 10/10/2024 10:02:00 AM This report has been signed electronically. Number of Addenda: 0 Note Initiated On: 10/10/2024 9:42 AM
[2024-10-10 10:05] VITALS: BP 137/95; BP 95/63; PULSE 6; PULSE 86; RESP 14; RESP 16; TEMP 36.1; O2SAT 98
--- NOTE | 2024-10-10 10:05 | PCM.POST.ANE ---
Anesthesia: Postop Eval I Current Vital Signs Temperature: 97 F Pulse Rate: 6 Blood Pressure: 95/63 Respiratory Rate: 14 Pulse Ox: 98 Oxygen Delivery Method: Room Air Assessment Airway patent: Yes Spontaneous unlabored respirations: Yes Mental status: Awake nausea: No Vomiting: No Anesthesia Complication: No Fluid Hydration Crystalloid volume administer (ml): 10 Total IV fluid infused: 10 Progress Note Anesthesia document: Postop Eval 1 completed: Yes
[2024-10-10 10:10] VITALS: BP 101/66; BP 137/95; PULSE 87; RESP 16; TEMP 36.6; O2SAT 96
[2024-10-10 10:26] VITALS: BP 137/95
--- NOTE | 2024-10-10 11:33 | POSTOPAN2_ITS ---
Anesthesia Postop Eval I Sum Postop Eval Completion status Anesthesia document: Postop Eval 1 completed: Yes Anesthesia Postop Eval I Summary Anesthesia Postop Eval I Summary: Anesthesia Postop Eval I: Assessment Summary Airway patent Yes 10/10/24 10:05 [facility] OPERATOR.HBARR Spontaneous unlabored Yes 10/10/24 10:05 [facility] OPERATOR.HBARR respirations Mental status Awake 10/10/24 10:05 [facility] OPERATOR.HBARR nausea No 10/10/24 10:05 [facility] OPERATOR.HBARR Vomiting No 10/10/24 10:05 [facility] OPERATOR.HBARR Anesthesia Postop Eval I: Fluid Summary Crystalloid volume administer 10 10/10/24 10:05 [facility] OPERATOR.HBARR (ml) Colloids volume administered ( ml) Blood Product volume administered (ml) Total IV fluid infused 10 10/10/24 10:05 [facility] OPERATOR.HBARR Anesthesia Postop Eval I: Summary Notes Anesthesia Complication No 10/10/24 10:05 [facility] OPERATOR.HBARR Anesthesia Complication Comment: Post-operative progress note Anesthesia: Postop Eval II Evaluation Mental status: Awake Pain Level: 0 nausea: No Vomiting: No
--- NOTE | 2024-10-10 11:33 | PCM.POSTANE2 ---
Anesthesia Postop Eval I Sum Postop Eval Completion status Anesthesia document: Postop Eval 1 completed: Yes Anesthesia Postop Eval I Summary Anesthesia Postop Eval I Summary: Anesthesia Postop Eval I: Assessment Summary Airway patent Yes 10/10/24 10:05 [email or web address] Spontaneous unlabored Yes 10/10/24 10:05 [email or web address].[email or web address] respirations Mental status Awake 10/10/24 10:05 [email or web address].[email or web address] nausea No 10/10/24 10:05 [email or web address].HBARR Vomiting No 10/10/24 10:05 [email or web address].HBARR Anesthesia Postop Eval I: Fluid Summary Crystalloid volume administer 10 10/10/24 10:05 [email or web address].[email or web address] (ml) Colloids volume administered ( ml) Blood Product volume administered (ml) Total IV fluid infused 10 10/10/24 10:05 [email or web address].HBARR Anesthesia Postop Eval I: Summary Notes Anesthesia Complication No 10/10/24 10:05 [email or web address].HBARR Anesthesia Complication Comment: Post-operative progress note Anesthesia: Postop Eval II Evaluation Mental status: Awake Pain Level: 0 nausea: No Vomiting: No
== END 2024-10-10 10:32 | disposition home or self-care (01) ==
LOC: EN 08:19 → AC 08:20
PROVIDERS: PCP Internal Medicine; Referring Provider Internal Medicine; Visit Provider Surgery
PROC: 0DJD8ZZ Inspection of Lower Intestinal Tract, Via Natural or Artificial Opening Endoscopic (ICD-10-PCS; CPT 45378; principal; 2024-10-10 09:25)
DX: Z12.11 Encounter for screening for malignant neoplasm of colon (principal); Z80.0 Family history of malignant neoplasm of digestive organs; I10 Essential (primary) hypertension; K21.9 Gastro-esophageal reflux disease without esophagitis; Z79.899 Other long term (current) drug therapy
CPT/HCPCS: G0121; A4216

== ENCOUNTER → 2025-02-28 | Outpatient (CLI) | payer MEDICARE, BC, SELFPAY ==
[2025-02-28 12:20] LABS: Hematocrit 37.4 % (37-47); Hemoglobin 12.1 g/dL (12.0-15.0); Immature Granulocytes Count 0.010 X10^3/uL (0.0-0.0); Mean Corp Hgb Conc 32.4 g/dL (32-36); Mean Corpuscular Volume 91.7 fL (81-99); Mean Platelet Vol. 9.5 fl (6.2-12.0); NRBC Flagged by Analyzer 0 % (0-5); Platelet Count 309 K/mm3 (150-450); RBC Distribution Width CV 13.2 % (11.6-14.6); RBC Distribution Width SD 44.7 fl (35.1-43.9); Red Blood Count 4.08 M/mm3 (4.2-5.4); White Blood Count 4.2 K/mm3 (4.4-11.0)
[2025-02-28 12:35] LABS: AST(SGOT) 22 U/L (<=31); Alanine Aminotransfer ALT/SGPT 20 U/L (<=34); Albumin, Serum 4.1 g/dL (3.4-4.8); Alkaline Phosphatase 51 U/L (35-104); Anion Gap 11 (5-15); BUN 9 mg/dL (4-19); BUN/Creat Ratio 10.2 RATIO (10-20); Calcium,Total 9.2 mg/dL (7.6-11.0); Carbon Dioxide 25.3 mmol/L (21.0-32.0); Chloride 98 mmol/L (98-108); Cholesterol 182 mg/dL (<=200); Globulin 2.2 g/dL (2.2-4.2); Glucose 83 mg/dL (70-99); Low Density Lipoprotein Calc. 95 mg/dL; Potassium 4.6 mmol/L (3.3-5.1); Triglycerides 84 mg/dL; Very Low Density Lipoprotein 17 mg/dL (5-40); cholesterol:hdl ratio screen 2.61
== END | disposition home or self-care (01) ==
LOC: BIMLAB 09:44
PROVIDERS: PCP Internal Medicine; Referring Provider Internal Medicine; Visit Provider Internal Medicine
DX: I10 Essential (primary) hypertension (principal)
CPT/HCPCS: 36415; 80053; 80061; 85025

== ENCOUNTER → 2025-04-25 | Outpatient (CLI) | payer MEDICARE, BC, SELFPAY ==
[2025-04-25 12:32] LABS: Hematocrit 33.7 % (37-47); Hemoglobin 10.9 g/dL (12.0-15.0); Immature Granulocytes Count 0.010 X10^3/uL (0.0-0.0); Mean Corp Hgb Conc 32.3 g/dL (32-36); Mean Corpuscular Volume 92.6 fL (81-99); Mean Platelet Vol. 9.4 fl (6.2-12.0); NRBC Flagged by Analyzer 0 % (0-5); Platelet Count 384 K/mm3 (150-450); RBC Distribution Width CV 13.5 % (11.6-14.6); RBC Distribution Width SD 46.4 fl (35.1-43.9); Red Blood Count 3.64 M/mm3 (4.2-5.4); White Blood Count 6.2 K/mm3 (4.4-11.0)
== END | disposition home or self-care (01) ==
LOC: BIMLAB 11:03
PROVIDERS: PCP Internal Medicine; Visit Provider Internal Medicine
DX: I10 Essential (primary) hypertension (principal)
CPT/HCPCS: 36415; 85025

== ENCOUNTER → 2025-04-27 | Outpatient (CLI) | payer MEDICARE, BC, SELFPAY ==
[2025-04-27 15:53] LABS: Ferritin 20 ng/mL (22-378); Iron 102 ug/dL (50-170); Iron Binding Capacity,Total 335 ug/dL (250-450); Iron Binding Capacity,Unsat 233 ug/dL (228-428)
== END | disposition home or self-care (01) ==
LOC: MFPLAB 13:58
PROVIDERS: PCP Internal Medicine; Referring Provider Internal Medicine; Visit Provider Internal Medicine
DX: D64.9 Anemia, unspecified (principal)
CPT/HCPCS: 36415; 82728; 83540; 83550; 84439; 84443